=== PATIENT | female | born 1960 | race Caucasian/White ===

== ENCOUNTER 2023-11-18 00:07 | Day surgery (SDC) | payer OTHER, SELFPAY ==
[2023-11-03 08:35] VITALS: BMI 19.3
--- NOTE | 2023-11-16 09:06 | SUR.PREOP ---
Patient called regarding upcoming procedure. Message pt's voicemail regarding appointment times.
[2023-11-18 10:41] VITALS: BP 111/65; PULSE 68; RESP 16; TEMP 36.1; O2SAT 100; BMI 16.0
[2023-11-18] MEDS: LACTATED RINGERS 1,000 ML 150 ML IV CONT (10:50)
--- NOTE | 2023-11-18 10:56 | P.HP_ITS ---
History of Present Illness History of Present Illness Consent: Risks, benefits, and alternatives have been discussed and questions answered. Patient agrees to proceed with procedure. Chief complaint: fam hx colon ca Narrative: Christina Jack is a 63 year old female Presents for screening colonoscopy. Patient's current weight appetite and bowel movements are normal. She denies abdominal pain. Patient has had no bleeding. Family history is significant taylor t her mother had colon cancer. Patient presents today for surveillance colonoscopy. Review of Systems Review of Systems: Review of systems noncontributory. [facility] Family History Family History (System 04/16/22 @ 14:14 by Madison English) Mother Carcinoma of colon Family history of malignant neoplasm of kidney Sibling Family history of malignant neoplasm of breast in first degree relative Father Family history of malignant neoplasm of esophagus Social History Social History (System 04/16/22 @ 14:14 by Madison English) Smoking status: Never smoker Alcohol intake: current Drinks per week: 20 Substance use type: does not use Living arrangements: with family Spiritual care concerns: No Meds Home Medications and Allergies Home Medications Medication Instructions Recorded Confirmed Type No Home Medications 11/03/23 11/18/23 History Allergies Allergy/AdvReac Type Severity Reaction Status Date / Time No Known Allergies Allergy Unknown Verified 11/18/23 10:41 Vital Signs Vital Signs - 24 hr 11/18/23 10:41 Temperature 96.9 F L Pulse Rate 68 Respiratory Rate 16 Blood Pressure 111/65 Pulse Oximetry 100 Oxygen Delivery Room Air Exam Narrative: Physical exam reveals patient to be alert. Vital signs stable. HEENT exam is unremarkable. Patient is anicteric. Lungs are clear to auscultation and percussion. Heart is without murmur or extra sounds. Abdomen bowel sounds are present soft nontender with no organomegaly. Digital external rectal exam normal. Assessment and Plan Assessment and plan (1) Family history of colon cancer in mother: Code(s): Z80.0 - Family history of malignant neoplasm of digestive organs Status: Acute Assessment and Plan: Patient's mother had colon cancer. Plan for surveillance colonoscopy at 5 year intervals per
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
[2023-11-18 12:21] VITALS: BP 84/52; PULSE 67; RESP 24; O2SAT 100
[2023-11-18 12:31] VITALS: BP 92/57; PULSE 64; RESP 17; O2SAT 100
[2023-11-18 12:41] VITALS: BP 102/67; PULSE 64; RESP 14; O2SAT 100
== END 2023-11-18 12:58 | disposition home or self-care (01) ==
PROVIDERS: PCP Internal Medicine; Visit Provider Internal Medicine Gastroenterology
PROC: 0DJD8ZZ Inspection of Lower Intestinal Tract, Via Natural or Artificial Opening Endoscopic (ICD-10-PCS; CPT 45378; principal; 2023-11-18 11:30)
DX: Z12.11 Encounter for screening for malignant neoplasm of colon (principal); D12.5 Benign neoplasm of sigmoid colon; K64.8 Other hemorrhoids; K57.30 Diverticulosis of large intestine without perforation or abscess without bleeding; Z80.0 Family history of malignant neoplasm of digestive organs; Z80.51 Family history of malignant neoplasm of kidney; Z80.3 Family history of malignant neoplasm of breast
CPT/HCPCS: 45385; 88305; J2371; J2704; J7120

== ENCOUNTER 2024-11-25 10:36 | Outpatient (CLI) | payer MEDICARE, SELFPAY ==
--- NOTE | ~2024-11-25 | MM_ITS ---
EXAMINATION: MM screening mammo implant BI HISTORY: Screening TECHNIQUE: Craniocaudal and mediolateral oblique 3-D tomosynthesis images were obtained and synthetic 2-D images were generated. CAD analysis was submitted and interpreted. No implant displaced views we re possible given the scar tissue from current implants. COMPARISON: No prior mammogram is available for comparison at this institution. BREAST PARENCHYMAL COMPOSITION: The breasts are heterogeneously dense, which may obscure small masses . FINDINGS: Indeterminate parenchymal pattern without suspicious microcalcifications, discrete masses or signific ant asymmetry. IMPRESSION: 1. No mammographic evidence of malignancy. Recommend bilateral breast US for surveillance BI-RADS Category 0: Incomplete: Needs additional imaging evaluation. Reviewed, dictated and finalized at location A. EDURE ANALYST
== END 2024-11-25 10:37 | disposition home or self-care (01) ==
LOC: ANHIMG 10:42
PROVIDERS: PCP Internal Medicine; Visit Provider Internal Medicine
DX: Z12.31 Encounter for screening mammogram for malignant neoplasm of breast (principal)
CPT/HCPCS: 77063; 77067

== ENCOUNTER 2025-01-12 09:15 | Outpatient (CLI) | payer MEDICARE, SELFPAY ==
--- NOTE | ~2025-01-12 | US_ITS ---
US breast BI complete 01/12/2025 10:12 Indication: Very little breast tissue with breast implants. Ultrasound examination recommended. Procedure: High-resolution bilateral complete breast ultrasound Comparison: Screening mammogram dated 11/25/2024 Findings: Right breast: At 10:00, 8 cm from the nipple there is an oval 3 mm hypoechoic mass without significan t posterior features or internal vascularity. At 11:00, 8 cm from the nipple there is a 6 mm cyst. Left breast: There is a cluster of cysts at 1:00, 8 cm from the nipple, best seen on serial sonograph ic sequences. Impression: 1: Probable benign bilateral breast masses. BI-RADS CATEGORY 3-PROBABLY BENIGN FINDING RECOMMENDATION: Six-month follow-up limited bilateral breast ultrasound recommended. Reviewed, dictated and finalized at location [employer]NOVATION OFFICER Impression: 1: Probable benign bilateral breast masses. BI-RADS CATEGORY 3-PROBABLY BENIGN FINDING RECOMMENDATION: Six-month follow-up limited bilateral breast ultrasound recomme nded.
--- OUTSIDE RECORDS SUMMARY | 2025-01-12 09:25 | XMS_ITS | Encounter Summary ---
Author Organization [facility] System Address [address] [place] [address] Care Team Providers Care Machine Fur Cleaner Name Role Phone Beth Pereyra MD Primary Care Provider Paul Ariza MD Unavailable [phone] Chucho Joshi MD Unavailable [phone] Encounter Details Date Type Department Care Team (Late Contact Info) Description 07/17/2024 MyChart Message Enc [address] [address] [address] [place] [address] [place] [address] [place] [address] Vaccine Social History Tobacco Use Types Packs/Day Years Used Date Smoking Tobacco: Never Smokeless Tobacco: Never Comments:Counseled by DR Susannah conteh. Alcohol Use Standard Drinks/Week Comments Yes 28.3 (1 standard dri nk = 0.6 oz pure alcohol) Wine OR beer,not both same evening,Happy hour/dinner/evening PHQ-2 Answer Date Recorded Patient Health Questionnaire-2 Score 1 06/28/2023 Comments No Sex and Gender Information Value Date Recorded Sex Assigned at Not on file Legal Sex Female 3:55 PM CDT Gender Identity Not on file Sexual Orientation Not on file documented as of this encounter Plan of Treatment Upcoming Encounters Date Type Department Care Team (Late Contact Info) Description 09/05/2025 2:00 PM CDT Office Visit [facility]pecialty Care - [place] [address] [address] [place] [address] Beth Pereyra MD [facility] [address] 09/05/2025 3:00 PM CDT Office Visit [facility] Mult[facility]pecialty Care - [place] [address] [address] [place] [address] Beth Pereyra MD [address] [address] documented as of this encounter Visit Diagnoses Not on filedocumented in this encounter Care Teams Machine Fur Cleaner Relationship Specialty Start Date End Date Beth Pereyra MD [address] [place] [address] PCP - General INTERNAL MEDICINE 05/04/23 Paul Ariza MD 1 [place] [address] ORTHOPAEDIC SURGERY 08/23/24 08/23/24 Chucho Joshi MD 1225 [place] [address] ORTHOPAEDIC SURGERY 08/23/24 documented as of this encounter
--- OUTSIDE RECORDS SUMMARY | 2025-01-12 09:25 | XMS_ITS | Encounter Summary ---
Author Organization [facility] Address [address] [place] [address] Care Team Providers Care Food And Beverage Assistant Manager Name Role Phone Beth Pereyra MD Primary Care Provider [phone] Paul Ariza MD Unavailable [phone] Chucho Joshi MD Unavailable [phone] Encounter Details Date Type Department Care Team (Late Contact Info) Description 07/04/2023 [facility] [address] [address] Beth Pereyra MD [address] [place] [address] Thank you Social History Tobacco Use Types Packs/Day Years Used Date Smoking Tobacco: Never Smokeless Tobacco: Never Comments:Counseled by DR Susannah conteh. Alcohol Use Standard Drinks/Week Comments Yes 33.3 (1 standard drink = 0.6 oz pure alcohol) Happy hour, dinner, evening PHQ-2 Answer Date Recorded Patient Health Questionnaire-2 [...] Description 09/05/2025 2:00 PM CDT Office Visit [facility] Multispecialty [address] [place] [address] Beth Pereyra MD [address] [address] 09/05/2025 3:00 PM CDT Office Visit [facility] Multispecialty Care - [place] [address] [address] [place] [address] Beth Pereyra MD [facility] [address] [address] documented as of this encounter Visit Diagnoses Not on filedocumented in this encounter Care Teams Food And Beverage Assistant Manager Relationship Specialty Start Date End Date Beth Pereyra MD [address] [place] [address] PCP - General INTERNAL MEDICINE 05/04/23 Paul Ariza MD 1 [place] [address] ORTHOPAEDIC SURGERY 08/23/24 08/23/24 Chucho Joshi MD 1225 [place] [address] ORTHOPAEDIC SURGERY 08/23/24 documented as of this encounter
--- OUTSIDE RECORDS SUMMARY | 2025-01-12 09:25 | XMS_ITS | Encounter Summary ---
Author Organization [facility] System Address [facility] [place] [address] Care Team Providers Care Ceramic Plater Name Role Phone Beth Pereyra MD Primary Care Provider [phone] Paul Ariza MD Unavailable [phone] Chucho Joshi MD Unavailable [phone] Encounter Details Date Type Department Care Team (Late Contact Info) Description 01/10/2024 [facility] [address] Beth Pereyra MD [address] [place] [address] Records Social History Tobacco Use Types Packs/Day Years [...] Description 09/05/2025 2:00 PM CDT Office Visit [facility] Multispecialty [address] [place] [address] Beth Pereyra MD [address] [address] 09/05/2025 3:00 PM CDT Office Visit [facility] Medical Group Multispecialty Care - [place] [address] [address] [address] [place] [address] Beth Pereyra MD [address] [address] documented as of this encounter Visit Diagnoses Not on filedocumented in this encounter Care Teams Ceramic Plater Relationship Specialty Start Date End Date Beth Pereyra MD [address] [place] [address] PCP - General INTERNAL MEDICINE 05/04/23 Paul Ariza MD 1 [place] [address] ORTHOPAEDIC SURGERY 08/23/24 08/23/24 Chucho Joshi MD 1225 [place] [address] ORTHOPAEDIC SURGERY 08/23/24 documented as of this encounter
--- OUTSIDE RECORDS SUMMARY | 2025-01-12 09:25 | XMS_ITS | Encounter Summary ---
Author Organization [facility] Address [address] [place] [address] Care Team Providers Care Electric Meter Repairer Apprentice Name Role Phone Beth Pereyra MD Primary Care Provider [phone] Paul Ariza MD Unavailable [phone] Chucho Joshi MD Unavailable [phone] Encounter Details Date Type Department Care Team (Latest Contact Info) Description 09/01/2023 [facility] [address] [address] Beth Pereyra MD [address] [place] [address] Breast Cancer Screening Social History Tobacco Use Types Packs/Day Years [...] Upcoming Encounters Date Type Department Care Team ( st Contact Info) Description 09/05/2025 2:00 PM CDT Office Visit [facility] Multispecialty [address] [place] [address] Beth Pereyra MD [address] [address] 09/05/2025 3:00 PM CDT Office Visit [facility] Medical Group Multispecialty Care - [place] [address] [address] [place] [address] Beth Pereyra MD [facility] [address] [address] documented as of this encounter Visit Diagnoses Not on filedocumented in this encounter Care Teams Electric Meter Repairer Apprentice Relationship Specialty Start Date End Date Beth Pereyra MD [address] [place] [address] PCP - General INTERNAL MEDICINE 05/04/23 Paul Ariza MD 1 [place] [address] ORTHOPAEDIC SURGERY 08/23/24 08/23/24 Chucho Joshi MD 1225 [place] [address] ORTHOPAEDIC SURGERY 08/23/24 documented as of this encounter
--- OUTSIDE RECORDS SUMMARY | 2025-01-12 09:25 | XMS_ITS | Clinical Summary ---
Author Organization [facility] Address [address] [place] [address] Care Team Providers Care Credit Risk Modeler Name Role Phone Beth Pereyra MD Primary Care Provider [phone] Chucho Joshi MD Unavailable [phone] Allergies No known active allergies Medications No known medications Active Problems Problem Noted Date Diagnosed Date Breast implant rupture 06/28/2023 Arthritis 06/28/2023 KINZA (generalized anxiety disorder) 06/28/2023 Encounters Date Type Department Care Team Description [facility]/10[facility] [place] [address] [facility] [address] [place], [place] [id number] Beth Pereyra MD Referral 01/02/2025 [facility] [place] [address] [place], [place] [address] Beth Pereyra MD Follow Up Call 11/25/2024 Scan HEALTH INFO SRVCS Scanned, [facility] Mammogram (SCAN) 11/08/2024 Scan HEALTH INFO SRVCS Scanned, [facility] from Last 3 Months Immunizations Name Administration Dates Next Due Abrysvo Respiratory Syncytia l Virus (RSV) 0.5 mL, PF 08/13/2023 Arexvy Respiratory Syncytial Virus (RSV, adjuvanted) 0.5 mL, PF 08/13/2023 FLUAD (IIV, Trivalent, 0.5 M L Pre-filled Syringe) 08/12/2024 Influenza (Generic) 10/11/2017,12/06/2012 Influenza Adult (Generic) 08/13/2023,08/2022,10/25/2021,2019,09/18/2018 PFIZER COVID-19 (12+) MRNA, LNP-S, PF, RAJANI-SUCROSE, 30 MCG/0.3 ML (COMIRNATY) 08/12/2024,08/19/2023 PFIZER COVID-19 (DAVIS CAP), MRNA, LNP-S, PF, 30 MCG/0.3 ML RAJANI-SUCROSE, IM 08/19/2023,03/23/2022 PFIZER COVID-19 (ORIGINAL FORMULATION, PURPLE CAP) mRNA, LNP-S, PF, 30 MCG/0.3 ML DOSE 10/25/2021,03/04/2021,02/11/2021 Pneumococcal (Prevnar 20) 07/17/2024 Shingrix 05/04/2023,02/23/2023 Tdap (Generic) 01/18/2023 Zoster (Zostavax) [address] Unt/0.65Ml 10/11/2017 Family History Medical History Relation Comments Miscarriages / Stillbirths Daughter 4 mis carriages Arthritis Father Cancer Father esophageal, bone Hypertension Father Stroke Maternal Aunt Stroke Maternal Grandmother Arthritis Mother Cancer Mother colon, kidney Miscarriages / Stillbirths Mother 2 mis carriages Cancer Paternal Aunt colon Cancer Paternal Grandfather prostrate Arthritis Paternal Grandmother Stroke Paternal Grandmother Arthritis Sister 1 psoriatic arthri tis Cancer Sister 1 breast Miscarriages / Stillbirths Sister 2 1 mis carriage Relation Status Comments Daughter Father Maternal Aunt Maternal Grandmother Mother Paternal Aunt Paternal Grandfather Paternal Grandmother Sister 1 Sister 2 Social History Tobacco Use Types Packs/Day Years Used Date Smoking Tobacco: Never Passive Smoke Exposure: Past Smokeless Tobacco: Never Tobacco Cessation:Counseling Given: Yes Comments:Counseled by DR Pereyra. Alcohol Use Standard Drinks/Week Comments Yes 11.7 (1 standard dri nk = 0.6 oz pure alcohol) Wine OR beer,not both same evening,Happy hour/dinner/evening AUDIT-C Answer Date Recorded Q1: How often do you have a drink containing alcohol? 4 or more times a week 08/22/2024 Q2: How many drinks containi ng alcohol do you have on a typical day when you are drinking? 1 or 2 Q3: How often do you have si x or more drinks on one occasion? Never 08/22/2024 PHQ-2 Answer Date Recorded Patient Health Questionnaire-2 Score 0 08/22/2024 Comments No Sex and Gender Information Value Date Recorded Sex Assigned at Not on file Legal Sex Female 3:55 PM CDT Gender Identity Not on file Sexual Orientation Not on file Last Filed Vital Signs Vital Sign Reading Time Taken Comments Blood Pressure 114/67 08/23/2024 2:12 PM CDT Pulse 65 08/23/2024 2:12 PM CDT Temperature 36.6 C (97.9 F) 08/23/2024 2:12 PM CDT Respiratory Rate 14 08/23/2024 2:12 PM CDT Oxygen Saturation 99% 08/23/2024 2:12 PM CDT Inhaled Oxygen Concentration - - Weight 48.7 kg (107 lb 6.4 oz) 08/23/2024 2:12 P M CDT Height 157.5 cm (5' 2 ) 08/23/2024 2:12 PM CDT Body Mass Index 19.64 08/23/2024 2:12 PM CDT Plan of Treatment Upcoming Encounters Date Type Department Care Team (Late st Contact Info) Description 09/05/2025 2:00 PM CDT Office Visit [facility] Medical [facility] Multispecialty [facility] - [address] [address] Beth Pereyra MD [address] [place] [address] 09/05/2025 3:00 PM CDT Office Visit [facility] Medical [facility] Multispecialty [facility] - [place] [address] [place] [address] Beth Pereyra MD [address] [place] [address] Health Maintenance Due Date Last Done Comments Dexa Scan (General) 2024 PHQ-2 (Physician Hearne) 11/29/2024 08/22/2024 Mammogram Screening 11/25/2026 11/25/2024, 11/25/2024, 11/25/2024, Additional history exists DTaP, Tdap and Td Vaccines (2 - Td or Tdap) 01/18/2033 01/18/2023 Colorectal Cancer Screening Colonoscopy (10 Years) 11/18/2033 11/18/2023 Zoster Vaccines Completed 05/04/2023, 01/28, 10/11/2017 Hepatitis C Completed 06/28/2023 RSV Immunization or 60+ Years Completed 08/13/2023, 08/13/2023 Pneumococcal Vaccine: 65+ Years Completed 07/17/2024 Pneumococcal Vaccine: Pediatrics (0 to 5 Years) and At-Risk Patients (6 to 64 Years) Aged Out 07/17/2024 No longer eligible based on patient's age to complete this topic COVID-19 Vaccine Completed 08/12/2024, , 08/19/2023, Additional history exists Influenza Adult Completed 08/12/2024, 07/30, 09/07/2022, Additional history exists Meningococcal B Vaccine Aged Out No l onger eligible based on patient's age to complete this topic Meningococcal Vaccine Aged Out No lesley evonne eligible based on patient's age to complete this topic RSV Immunizations Under 20 Months Aged Out No longer eligible based on patient's age to complete this topic Procedures Procedure Name Priority Date/Time Associated Diagnosis Comments MAMMOGRAM GENERIC (SCAN ORDER) 11/25/2024 MAMMOGRAM GENERIC (SCAN ORDER) 11/25/2024 MAMMOGRAM GENERIC (SCAN ORDER) 11/25/2024 MAMMOGRAM GENERIC (SCAN ORDER) 11/25/2024 MAMMOGRAM GENERIC (SCAN ORDER) 11/25/2024 COLONOSCOPY GENERIC (SCAN ORDER) 11/18/2023 HEPATITIS C ANTIBODY Routine 06/28/2023 3:24 PM CDT Annual physical exam Establishing care with new doctor, encounter for Routine general medical examination at a health care facility Encounter for hepatitis C screening test for low risk patient from Last 3 Months or Most Recently Relevant to Health Maintenance Results * MAMMOGRAM GENERIC (SCAN ORDER) (11/25/2024) Only the most recent of5 resultswithin the time period is included. Anatomical Region Laterality Modality Other 11/25/2024 us [facility] Scanned SCANNING Final Resu lt * COLONOSCOPY GENERIC (11/18/2023) 11/18/2023 us [facility] Scanned SCANNING Final Resu lt * HEPATITIS C ANTIBODY (06/28/2023 3:24 PM CDT) HEPATITIS C AB NON-REACTI VE NON-REACT STEFAN 06/28/2023 9:44 PM CDT [facility] Comment: ANTIBODIES TO HCV NOT DETECTED. DOES NOT EXCLUDE THE POSSIBILITY OF EXPOSURE TO HCV. 06/28/2023 3:24 PM CDT Beth Pereyra MD LABORATORY Final Result Performing Organization Address City/State/[facility] Co de Phone Number [facility] [address] [place] [address], [id number] from Last 3 Months or Most Recently Relevant to Health Maintenance Insurance MEDICARE Care Teams Credit Risk Modeler Relationship Specialty Start Date End Date Beth Pereyra MD [facility] [address] [place] [address] PCP - General INTERNAL MEDICINE 05/04/23 Chucho Joshi MD [address]25 [place] [address] ORTHOPAEDIC SURGERY 08/23/24
--- OUTSIDE RECORDS SUMMARY | 2025-01-12 09:25 | XMS_ITS | Encounter Summary ---
Author Organization [facility] Address [address] [place] [address] Care Team Providers Care Assessment Analyst Name Role Phone Beth Pereyra MD Primary Care Provider [phone] Paul Ariza MD Unavailable [phone] Chucho Joshi MD Unavailable [phone] Encounter Details Date Type Department Care Team (Late Contact Info) Description 10/19/2023 [facility] [address] Beth Pereyra MD [address] [place] [address] Colonoscopy Social History Tobacco Use Types Packs/Day Years [...] Description 09/05/2025 2:00 PM CDT Office Visit [facility] Multispecialty [address] [place] [address] Beth Pereyra MD [address] [address] 09/05/2025 3:00 PM CDT Office Visit [facility] Medical Group Multispecialty Care - [place] [address] [place] [address] [address] [address] [place] [address] Beth Pereyra MD [address] [address] documented as of this encounter Visit Diagnoses Not on filedocumented in this encounter Care Teams Assessment Analyst Relationship Specialty Start Date End Date Beth Pereyra MD [address] [place] [address] PCP - General INTERNAL MEDICINE 05/04/23 Paul Ariza MD 1 [place] [address] ORTHOPAEDIC SURGERY 08/23/24 08/23/24 Chucho Joshi MD 1225 [place] [address] ORTHOPAEDIC SURGERY 08/23/24 documented as of this encounter
--- OUTSIDE RECORDS SUMMARY | 2025-01-12 09:25 | XMS_ITS | Encounter Summary ---
Author Organization [facility] Address [address] [place] [address] Care Team Providers Care Apparel Rental Clerk Name Role Phone Beth Pereyra MD Primary Care Provider [phone] Paul Ariza MD Unavailable [phone] Chucho Joshi MD Unavailable [phone] Encounter Details Date Type Department Care Team (Latest Contact Info) Description 08/23/2024 PointBursthart Message Enc [facility] Medical Group Multispecialty Care - [place] [address] [address] [place] [address] [place] [address] [place] [address] 157 [place] [address] Last eCheck questionnaire Social History Tobacco Use Types Packs/Day Years Used Date Smoking Tobacco: Never Passive Smoke Exposure: Past Smokeless Tobacco: Never Comments:Counseled by DR Susannah conteh. Alcohol Use Standard Drinks/Week Comments Yes 11.7 [...] Description 09/05/2025 2:00 PM CDT Office Visit [facility] Medical [facility] Multispecialty Care - [address] [address] Beth Pereyra MD [address] [place] [address] 09/05/2025 3:00 PM CDT [facility] [address] [address] Beth Pereyra MD [address] [place] [address] documented as of this encounter Visit Diagnoses Not on filedocumented in this encounter Additional Health Concerns Assessment Noted Time PHQ-9 Depression Total Score: 1 08/18/20 10:42 AM CDT documented as of this encounter Care Teams Apparel Rental Clerk Relationship Specialty Start Date End Date Beth Pereyra MD [address] [place] [address] PCP - General INTERNAL MEDICINE 05/04/23 Paul Ariza MD 1 [place] [address] ORTHOPAEDIC SURGERY 08/23/24 08/23/24 Chucho Joshi MD [address] [place] [address] ORTHOPAEDIC SURGERY 08/23/24 documented as of this encounter
--- OUTSIDE RECORDS SUMMARY | 2025-01-12 09:25 | XMS_ITS | Encounter Summary ---
Author Organization [facility] Address [address] [place] [address] Care Team Providers Care Steel Fitter Name Role Phone Beth Pereyra MD Primary Care Provider [phone] Paul Ariza MD Unavailable [phone] Chucho Joshi MD Unavailable [phone] Encounter Details Date Type Department Care Team (Late Contact Info) Description 08/20/2023 [facility] [address] Beth Pereyra MD [address] [place] [address] Vaccine updates Social History Tobacco Use Types Packs/Day Years [...] Description 09/05/2025 2:00 PM CDT Office Visit [facility] [address] [place] [address] Beth Pereyra MD [address] [address] 09/05/2025 3:00 PM CDT Office Visit [facility] Mult[facility]ialty Care - [address] [address] [address] [place] [address] Beth Pereyra MD [facility] [address] documented as of this encounter Visit Diagnoses Not on filedocumented in this encounter Care Teams Steel Fitter Relationship Specialty Start Date End Date Beth Pereyra MD [address] [place] [address] PCP - General INTERNAL MEDICINE 05/04/23 Paul Ariza MD 1 [place] [address] ORTHOPAEDIC SURGERY 08/23/24 08/23/24 Chucho Joshi MD [address] [place] [address] ORTHOPAEDIC SURGERY 08/23/24 documented as of this encounter
--- OUTSIDE RECORDS SUMMARY | 2025-01-12 09:25 | XMS_ITS | Encounter Summary ---
Author Organization [facility] Address [address] [place] [address] Care Team Providers Care Mandarin Teacher Name Role Phone Beth Pereyra MD Primary Care Provider [phone] Paul Ariza MD Unavailable [phone] Chucho Joshi MD Unavailable Encounter Details Date Type Department Care Team (Late st Contact Info) Description 08/20/2024 MyChart Message Enc [facility] Multispecialty Care - [address] [place] [address] Beth Pereyra MD [address] [place] [address] Questionnaires Social History Tobacco Use Types Packs/Day Years [...] on file documented as of this encounter Progress Notes * Joselyn Rivas - 08/24/2024 10:24 AM CDT Sent patient a message; patient is scheduled with Dr. Pereyra and Tessy on the same day; resulting in forms being sent twice. documented in this encounter Plan of Treatment Upcoming Encounters Date Type Department Care Team (Late st Contact Info) Description 09/05/2025 2:00 PM CDT Office Visit [facility] Medical [facility] Multispecialty [facility] - [address] [address] Beth Pereyra MD [address] [place] [address] 09/05/2025 3:00 PM CDT [facility] [address] [address] Beth Pereyra MD [address] [place] [address] documented as of this encounter Visit Diagnoses Not on filedocumented in this encounter Additional Health Concerns Assessment Noted Time PHQ-9 Depression Total Score: 1 08/18/20 24 10:42 AM CDT documented as of this encounter Care Teams Mandarin Teacher Relationship Specialty Start Date End Date Beth Pereyra MD [address] [place] [address] PCP - General INTERNAL MEDICINE 05/04/23 Paul Ariza MD 1 [place] [address] ORTHOPAEDIC SURGERY 08/23/24 08/23/24 Chucho Joshi MD [address] [place] [address] ORTHOPAEDIC SURGERY 08/23/24 documented as of this encounter
--- OUTSIDE RECORDS SUMMARY | 2025-01-12 09:25 | XMS_ITS | Encounter Summary ---
Author Organization [facility] Address [address] [place] [address] Care Team Providers Care Deputy Chief Sheriff Name Role Phone Beth Pereyra MD Primary Care Provider [phone] Paul Ariza MD Unavailable [phone] Chucho Joshi MD Unavailable [phone] Encounter Details Date Type Department Care Team (Late Contact Info) Description 12/05/2023 [facility] [address] Beth Pereyra MD [address] [place] [address] Happy New Year! Social History Tobacco Use Types Packs/Day Years [...] Description 09/05/2025 2:00 PM CDT Office Visit [facility] Multispecialty [address] [place] [address] Beth Pereyra MD [address] [address] 09/05/2025 3:00 PM CDT Office Visit [facility] Multispecialty Care - [address] [address] [address] [place] [address] Beth Pereyra MD [facility] [address] [address] documented as of this encounter Visit Diagnoses Not on filedocumented in this encounter Care Teams Deputy Chief Sheriff Relationship Specialty Start Date End Date Beth Pereyra MD [address] [place] [address] PCP - General INTERNAL MEDICINE 05/04/23 Paul Ariza MD 1 [place] [address] ORTHOPAEDIC SURGERY 08/23/24 08/23/24 Chucho Joshi MD [address] [place] [address] ORTHOPAEDIC SURGERY 08/23/24 documented as of this encounter
--- OUTSIDE RECORDS SUMMARY | 2025-01-12 09:25 | XMS_ITS | Encounter Summary ---
Author Organization [facility] Address [address] [place] [address] Care Team Providers Care Refrigerator Assembler Name Role Phone Beth Pereyra MD Primary Care Provider [phone] Paul Ariza MD Unavailable [phone] Chucho Joshi MD Unavailable [phone] Encounter Details Date Type Department Care Team (Latest Contact Info) Description 09/25/2023 [facility] [address] Beth Pereyra MD [address] [place] [address] Breast Cancer Screening Social History Tobacco [...] Description 09/05/2025 2:00 PM CDT Office Visit [facility] Mult[facility]pecialty [address] [place] [address] Beth Pereyra MD [address] [address] 09/05/2025 3:00 PM CDT Office Visit [facility] Multispecialty Care - [place] [address] [address] [place] [address] Beth Pereyra MD [facility] [address] [address] documented as of this encounter Visit Diagnoses Not on filedocumented in this encounter Care Teams Refrigerator Assembler Relationship Specialty Start Date End Date Beth Pereyra MD [address] [place] [address] PCP - General INTERNAL MEDICINE 05/04/23 Paul Arzia MD 1 [place] [address] ORTHOPAEDIC SURGERY 08/23/24 08/23/24 Chucho Joshi MD [address] [place] [address] ORTHOPAEDIC SURGERY 08/23/24 documented as of this encounter
--- OUTSIDE RECORDS SUMMARY | 2025-01-12 09:26 | XMS_ITS | Patient Health Summary ---
Author Organization [facility] Address [address] [place] [address] Care Team Providers Care Dry House Operator Name Role Phone Beth Pereyra MD Primary Care Provider [phone] Note from [facility],non-owned Affiliates and Associated Physician Practices is amultiple site organization consisting of ambulatory clinics and hospital sitesin [place], [place], [place] and [place]. This disclosure is being madepursuant to the Care Everywhere program and may not contain all information available regarding this patient. Last updated 18.[facility] Allergies No known active allergies Medications * Be aware that medications may not be up to date on this document. Alwaysverify current medications with the patient. * pregabalin (Lyrica) 50 MG capsule(Started 10/13/2024) Take 1 (one) capsule by mouth 2 times daily for 30 days Reasons: Neuropathic Pain * famotidine (Pepcid) 20 MG tablet(Started 10/13/2024) Take 1 (one) tablet by mouth every 12 hours for 30 days Reasons: Gastroesophageal Reflux Disease * celecoxib (CeleBREX) 100 MG capsule(Started 10/13/2024) Take 1 (one) capsule by mouth 2 times daily Reasons: Musculoskeletal Pain * aspirin EC (Ecotrin) 81 MG tablet(Started 10/13/2024) Take 1 (one) tablet by mouth every 12 hours Reasons: Venous Thromboembolism Active Problems Problem Noted Date Diagnosed Date Osteoarthritis, unspecified osteoarthritis type, unspecified site 10/12/2024 Acquired leg length discrepancy 09/02/2023 Immunizations * COVID PFIZER BIVALENT 12Y+ 30mcg/0.3ML(Given 09/07/2022) * Covid Pfizer primary Monovalent 12+ yr 0.3ml(Given 08/19/2023) Social History Tobacco Use Types Packs/Day Years Used Date Smoking Tobacco: Never Passive Smoke Exposure: Past Smokeless Tobacco: Never Tobacco Cessation:Counseling Given: Not Answered Alcohol Use Standard Drinks/Week Comments Yes 2 (1 standard drink = 0.6 oz pur e alcohol) with dinner PHQ-2 Answer Date Recorded Patient Health Questionnaire-2 Score 0 11/01/2024 Sex and Gender Information Value Date Recorded Sex Assigned at Not on file Gender Identity Not on file Sexual Orientation Not on file Last Filed Vital Signs Vital Sign Reading Time Taken Comments Blood Pressure 120/64 10/13/2024 7:39 AM TEXTILE SCIENCE TECHNICIAN Pulse 69 10/13/2024 7:39 AM TEXTILE SCIENCE TECHNICIAN Temperature 36.9 C (98.5 F) 10/13/2024 7:39 AM TEXTILE SCIENCE TECHNICIAN Respiratory Rate 16 10/13/2024 7:39 AM TEXTILE SCIENCE TECHNICIAN Oxygen Saturation 99% 10/13/2024 7:39 AM TEXTILE SCIENCE TECHNICIAN Inhaled Oxygen Concentration - - Weight 48.5 kg (107 lb) 11/08/2024 9:39 AM TEXTILE SCIENCE TECHNICIAN Height 157.5 cm (5' 2 ) 11/08/2024 9:39 AM TEXTILE SCIENCE TECHNICIAN Body Mass Index 19.57 11/08/2024 9:39 AM TEXTILE SCIENCE TECHNICIAN Medical Devices Implanted Type Area Senior Contracts Manager Device Identifier Shelf Expiration Date Model / Serial / Lot Tibial Baseplate Implanted:Qty: 1 on 10/12/2024 by Chucho Joshi MD at [facility] Left: Knee [employer] 03/21/2032 [id number] / / [id number] Articular Insert Implanted:Qty: 1 on 10/12/2024 by Chucho Joshi MD at [facility] Left: Knee [employer] 10/28/2031 [id number] / / [id number] Legion Por Cr Walton Fem L Sz 4 Implanted:Qty: 1 on 10/12/2024 by Chucho Joshi MD at [facility] Left: Knee [employer] 01/04/2032 [id number] / / [id number] Procedures * XR KNEE LEFT 4VW OR MORE(Performed 11/08/2024) Performed for Status post total left knee replacement * IMAGING/RADIOLOGY/XRAY RESULTS ORDER(Performed 10/17/2024) * CARDIAC RHYTHM STRIP ORDER(Performed 10/17/2024) * APHERESIS/TRANSFUSION ORDER(Performed 10/17/2024) * HGB HCT PANEL(Performed 10/13/2024) Performed for Osteoarthritis, unspecified osteoarthritis type, unspecified site * OT EVAL AND TREAT(Performed 10/12/2024) * ENDOTRACHEAL TUBE NOTE(Performed 10/12/2024) * PERIPHERAL BLOCK(Performed 10/12/2024) * BLOOD TYPE VERIFICATION(Performed 10/12/2024) * DC TOTAL KNEE REPLACEMENT(Performed 10/12/2024) Performed for Primary osteoarthritis of left knee * NICOTINE + METABOLITES URINE(Performed 10/02/2024) Performed for Nicotine dependence in remission, unspecified nicotine product type * NICOTINE + METABOLITES BLOOD(Performed 10/02/2024) Performed for Nicotine dependence in remission, unspecified nicotine product type * TRANSFERRIN(Performed 09/21/2024) Performed for Preprocedural examination * URINALYSIS REFLEX MICROSCOPIC REFLEX CULTURE(Performed 09/21/2024) Performed for Preprocedural examination * COMPREHENSIVE METABOLIC PANEL(Performed 09/21/2024) Performed for Preprocedural examination * CULTURE MSSA/MRSA(Performed 09/21/2024) Performed for Preprocedural examination * TYPE + SCREEN PANEL(Performed 09/21/2024) Performed for Preprocedural examination * FRUCTOSAMINE(Performed 09/21/2024) Performed for Preprocedural examination * HEMOGLOBIN A1C(Performed 09/21/2024) Performed for Preprocedural examination * CBC W AUTO DIFFERENTIAL(Performed 09/21/2024) Performed for Preprocedural examination * XR KNEE LEFT 4VW OR MORE(Performed 06/20/2024) Performed for Varus deformity of tibia, Acquired leg length discrepancy * XR KNEE BILAT STANDING 1VW(Performed 05/17/2024) Performed for Varus deformity of tibia * MAMMO BILAT IMPLANT SCREEN W BRAYDON(Performed 09/07/2023) Performed for Encounter for screening mammogram for malignant neoplasm of breast * CT 3D RECON W INDEPENDENT WKSN(Performed 09/01/2023) Performed for Varus deformity of tibia * CT TIBIA FIBULA LEFT WO CONT(Performed 09/01/2023) Performed for Varus deformity of tibia * XR TIBIA FIBULA LEFT 2VW(Performed 08/11/2023) Performed for Varus deformity of tibia * XR BONE LENGTH SCANOGRAM(Performed 08/11/2023) Performed for Varus deformity of tibia Results * XR Knee Left 4Vw or More (11/08/2024 9:41 AM TEXTILE SCIENCE TECHNICIAN) Only the most recent of2 resultswithin the time period is included. Anatomical Region Laterality Modality Lower Extremity Radiographic Shu ging 11/08/2024 9:59 AM TEXTILE SCIENCE TECHNICIAN Narrative 11/08/2024 10:00 AM TEXTILE SCIENCE TECHNICIAN PROCEDURE: XR KNEE LEFT 4VW OR MORE DATE/TIME OF EXAM: 11/08/2024 9:41 AM CLINICAL INFORMATION: None relevant/not provided if blank. Indication: Z96.652: Presence of left artificial knee joint XR KNEE LEFT 4VW OR MORE, AP, LATERAL VIEWS. HISTORY: Z96.652: Presence of left artificial knee joint COMPARISON: 06/20/2024 FINDINGS/IMPRESSION: 1. No acute fracture, dislocation, suspicious intrinsic bony lesions, or suspicious soft tissue abnormalities are identified. 2. The patient underwent tibiofemoral arthroplasty in the interval since the previous examination which appears uncomplicated. Alignment is anatomic. 3. There is no suprapatellar joint effusion, patella erlinda or patellar enthesopathy on lateral view. > Interpreting Provider: Guero Pichardo MD on 11/08/2024 10:00 AM Procedure Note Guero Pichardo MD - 11/08/2024 PROCEDURE: XR KNEE LEFT 4VW OR MORE DATE/TIME OF EXAM: 11/08/2024 9:41 AM CLINICAL INFORMATION: None relevant/not provided if blank. Indication: Z96.652: Presence of left artificial knee joint XR KNEE LEFT 4VW OR MORE, AP, LATERAL VIEWS. HISTORY: Z96.652: Presence of left artificial knee joint COMPARISON: 06/20/2024 FINDINGS/IMPRESSION: 1. No acute fracture, dislocation, suspicious intrinsic bony lesions, or suspicious soft tissue abnormalities are identified. 2. The patient underwent tibiofemoral arthroplasty in the interval since the previous examination which appears uncomplicated. Alignment is anatomic. 3. There is no suprapatellar joint effusion, patella erlinda or patellar enthesopathy on lateral view. > Interpreting Provider: Guero Pichardo MD on 11/08/2024 10:00 AM Chucho Joshi MD DIAGNOSTIC IMAGING ORDERABLES * IMAGING RADIOLOGY XRAY RESULTS ORDER (10/17/2024 2:05 AM TEXTILE SCIENCE TECHNICIAN) Anatomical Region Laterality Modality Other Narrative 10/17/2024 2:05 AM TEXTILE SCIENCE TECHNICIAN Ordered by an unspecified provider. Scanned Document IMAGING * CARDIAC RHYTHM STRIP ORDER (10/17/2024 2:04 AM TEXTILE SCIENCE TECHNICIAN) Narrative 10/17/2024 2:04 AM TEXTILE SCIENCE TECHNICIAN Ordered by an unspecified provider. Scanned Document CARDIAC SERVICES ORD ERABLES * APHERESIS/TRANSFUSION ORDER (10/17/2024 2:04 AM TEXTILE SCIENCE TECHNICIAN) Narrative 10/17/2024 2:04 AM TEXTILE SCIENCE TECHNICIAN Ordered by an unspecified provider. Scanned Document NURSING - VITAL SIGN S AND ASSESSMENT * (ABNORMAL) HGB HCT PANEL (10/13/2024 2:33 AM TEXTILE SCIENCE TECHNICIAN) [facility] Signature Hemoglobin 10.6(L) 11.9 - 15.8 g/dL 10/13/2024 3:01 AM TEXTILE SCIENCE TECHNICIAN [facility] Hematocrit 31.6(L) 34.8 - 46.1 % 10/13/2024 3:01 AM TEXTILE SCIENCE TECHNICIAN [facility] Blood BLOOD SPECIMEN / Unknown Lab Venipuncture / Unknown 10/13/2024 2:33 AM TEXTILE SCIENCE TECHNICIAN 10/13/2024 2:56 AM TEXTILE SCIENCE TECHNICIAN Chucho Joshi MD LAB - HEMATOLOGY OR DERABLES [facility] [address] [place] [address] * ETT LINE PERFORMABLE (10/12/2024 11:29 AM TEXTILE SCIENCE TECHNICIAN) Narrative Anupama Alejandre APRN-MARINE OIL TERMINAL SUPERINTENDENT - 10/12/2024 11:29 AM TEXTILE SCIENCE TECHNICIAN Anupama Alejandre APRN-CRNA 10/12/2024 11:29 AM Endotracheal Tube Placement: Patient Location: OR. Intubation Event Date/Time: 10/12/2024 11:11 AM Procedure: intubation ([id number]) Procedure Section: Sedation: under general anesthesia. Indications for Airway Management: anesthesia Induction: standard IV Patient Position: supine Mask Ventilation: easy. Blade Type: Seamus Blade Size: 3 Laryngoscopy View: grade 2 (partial cords) Intubation Adjuncts: stylet Tube: endotracheal tube Placement: oral Tube type: cuff - inflated Tube Size (MM): 7 Depth of Insertion (CM): 19 Measured From: teeth Cuff Inflated With: air Number of Attempts: 1. Placement Verified By: bilateral breath sounds, chest auscultation and CO2 monitor Tube secured with: adhesive tape. Dentition unchanged? Yes Difficult Airway? No. Procedure Start Time: 10/12/2024 11:11 AM. Staff Section Anesthesia Provider: Anupama Alejandre APRN-CRNA, Performed the procedure Provider #1: Redd Garvin MD. Redd Garvin MD GENERAL ANESTHESIA ORDERABLES * Peripheral Nerve Block (10/12/2024 10:51 AM TEXTILE SCIENCE TECHNICIAN) Narrative Redd Garvin MD - 10/12/2024 10:51 AM TEXTILE SCIENCE TECHNICIAN Redd Garvin MD 10/12/2024 10:53 AM Peripheral Nerve Block Procedure: Peripheral Nerve Block Patient Location: Pre-op Preprocedure Section: Indications: at surgeon's request and postop pain management. Pre-anesthetic Checklist: Patient identified, IV Checked, Site examined and clear, Risks and benefits discussed, Surgical consent verified, Monitors and equipment, Time-out performed, Informed consent obtained, Pre-op evaluation done, Questions answered/anesthesia questions answered, Allergies reviewed and Removal hand/wrist jewelry Monitors: BP, Pulse Ox and EKG. Patient Condition: sedated, meaningful contact maintained throughout procedure Patient Position: supine Patient Sedated? Yes Sedation Type: mild Sedation Agents: midazolam (VERSED) injection - Intravenous 2 mg - 10/12/2024 10:48:00 AM Procedure Section Laterality: left Block Performed: Adductor Canal Prep: Chloraprep Strerile Field: gloves, mask and hat/cap Skin localized with: lidocaine (XYLOCAINE) 1 % injection - Infiltration 1 mL - 10/12/2024 10:48:00 AM Needle Type: Echogenic insultaed Needle Gauge: 21 Needle Length: 80 mm Needle Depth: 5 cm Catheter? No Ultrasound Guided? Yes Technique: in plane Visualization: Preliminary scan performed, Important anatomical structures identified, Target identified, Needle tip visualized throughout the procedure, No intraneural or intravascular puncture occurred, Hydrodissection utilized, Local visualized surrounding nerve on ultrasound and Ultrasound image in chart Injection was made incrementally with constant monitoring and aspirations every 5 mL's Block Agents or Additives used? Yes Block agents used: bupivacaine 0.5% - EPINEPHrine 1:200,000 (PF) injection - Infiltration 20 mL - 10/12/2024 10:51:00 AM Procedure Tolerance: tolerated well Assessment: completed Procedure Start Time: 10/12/2024 10:48 AM. Procedure End Time: 10/12/2024 10:51 AM. Procedure Total Time: 3 minutes. Staff Section Anesthesia Provider: Redd Garvin MD, Performed the procedure Redd Garvin MD GENERAL ANESTHESIA ORDERABLES * BLOOD TYPE VERIFICATION (10/12/2024 9:47 AM TEXTILE SCIENCE TECHNICIAN) ABO Rh A POS 10/12/2024 10:14 AM TEXTILE SCIENCE TECHNICIAN [facility] Blood Bank BLOOD SPECIMEN / Unknown Venipuncture / Unknown 10/12/2024 9:47 AM TEXTILE SCIENCE TECHNICIAN 10/12/2024 9:54 AM TEXTILE SCIENCE TECHNICIAN Timothy Garcia MD LAB - BLOOD BANK ORD ERABLES [facility] [address] [place] [address] * NICOTINE + METABOLITES URINE (10/02/2024 2:00 PM TEXTILE SCIENCE TECHNICIAN) Nicotine Urine <10.0 ng/mL [facility] INSURANCE BILL Comment: Nicotine levels greater than 100.0 are consistent with the use of tobacco or tobacco cessation products. Cotinine Urine <10.0 ng/mL [facility] INSURANCE BILL Comment: Cotinine levels greater than 200.0 are consistent with the use of tobacco or tobacco cessation products. Urine URINE / Unknown 10/02/2024 2 :00 PM TEXTILE SCIENCE TECHNICIAN 10/02/2024 Narrative [facility] INSURANCE BILL - 10/06/2024 7:12 AM TEXTILE SCIENCE TECHNICIAN Test(s) 440829-Exsccquh; [id number]-Msbricjp was developed and its performance characteristics determined by [employer]. It has not been cleared or approved by the Food and Drug Administration. Performed at: - [address] [id number] Process Designer: Ministerio Nair MD, Phone: [phone] Chucho Joshi MD LAB - URINE SERGEANT OF OFFICERS RY ORDERABLES Performing Organization Address [facility] Co de Phone Number [facility] [address] [place] [address] * NICOTINE + METABOLITES BLOOD (10/02/2024 2:00 PM TEXTILE SCIENCE TECHNICIAN) Nicotine <1.0 ng/mL [facility] INSURANCE BILL Comment: This test was developed and its performance characteristics determined by [employer]. It has not been cleared or approved by the Food and Drug Administration. Nicotine levels greater than 2.0 are consistent with the use of tobacco or tobacco cessation products. Cotinine <1.0 ng/mL [facility] INSURANCE BILL Comment: This test was developed and its performance characteristics determined by [employer]. It has not been cleared or approved by the Food and Drug Administration. Cotinine levels greater than 20.0 are consistent with the use of tobacco or tobacco cessation products. Blood BLOOD SPECIMEN / Unknown 10/02/2024 2:00 PM TEXTILE SCIENCE TECHNICIAN 10/02/2024 Narrative [facility] INSURANCE BILL - 10/11/2024 10:13 AM TEXTILE SCIENCE TECHNICIAN Performed at: - [address] [id number] Process Designer: Ministerio Nair MD, Phone: [phone] Chucho Joshi MD LAB - CHEMISTRY ORD ERABLES [facility] [address] [place] [address] * CULTURE MSSA/MRSA (09/21/2024 1:53 PM CDT) Culture Negative for Staphylococcus aureus (MRSA/MSSA) 09/23/2024 9:43 AM CDT [facility]CRO[facility] Microbiology SPECIMEN FROM NASAL FOSSAE / Unknown Collection / Unknown 09/21/2024 1:53 PM CDT 09/21/2024 2:04 PM CDT Chucho Joshi MD LAB - MICROBIOLOGY ORDERABLES [facility] [address] [place] [address], [facility] [phone] * (ABNORMAL) URINALYSIS REFLEX MICROSCOPIC REFLEX CULTURE (09/21/2024 1:53 PM CDT) Color UA Yellow Straw, Yellow 09/21/2024 2:10 PM CDT [facility] Clarity UA Cloudy(A) Clear 09/21/2024 2:10 PM CDT [facility] Glucose UA Negative Negative 09/21/2024 2:10 PM CDT [facility] Bilirubin UA Negative Negative 09/21/2024 2:10 PM CDT [facility] Ketone UA Negative Negative 09/21/2024 2:10 PM CDT [facility] Specific [place] UA 1.010 1.005 - 1.030 09/21/2024 2:10 PM CDT [facility] Blood UA Negative Negative 09/21/2024 2:10 PM CDT [facility] pH UA 8.0 5.0 - 8.0 pH 09/21/2024 2:10 PM CDT [facility] Protein UA Negative Negative 09/21/2024 2:10 PM CDT [facility] Urobilinogen UA Negative Negative mg/dL 09/21/2024 2:10 PM CDT [facility] Nitrite UA Negative Negative 09/21/2024 2:10 PM CDT [facility] Leukocyte UA Negative Negative 09/21/2024 2:10 PM CDT [facility] Urine Microscopy Urine microscopy not indicated 09/21/2024 2:10 PM CDT [facility] Reflex Status Culture not indicated 09/21/2024 2:10 PM CDT [facility] Urine URINE SPECIMEN OBTAINED BY CLEAN CATCH PROCEDURE / Unknown Collection / Unknown 09/21/2024 1:53 PM CDT 09/21/2024 2:03 PM CDT Narrative [facility] - 09/21/2024 2:10 PM CDT Ascorbic Acid can cause false negative urine strip tests for blood, glucose, nitrite, and bilirubin. Chucho Joshi MD LAB - URINALYSIS OR DERABLES Performing Organization Address [facility] Co de Phone Number [facility] [address] [place] [id number] * TRANSFERRIN (09/21/2024 1:53 PM CDT) Pathologist [facility] Transferrin 250 174 - 382 mg/dL 09/21/2024 2:23 PM CDT [facility] Blood BLOOD SPECIMEN / Unknown Venipuncture / Unknown 09/21/2024 1:53 PM CDT 09/21/2024 2:03 PM CDT Chucho Joshi MD LAB - CHEMISTRY ORD ERABLES Performing Organization Address [facility] Co de Phone Number [facility] [address] [place] [phone] * (ABNORMAL) COMPREHENSIVE METABOLIC PANEL (09/21/2024 1:53 PM CDT) [facility] Glucose 104(H) 70 - 99 mg/dL 09/21/2024 2:23 PM CDT [facility] Sodium 140 136 - 145 mmol/L 09/21/2024 2:23 PM CDT [facility] Potassium 3.9 3.5 - 5.1 mmol/L 09/21/2024 2:23 PM CDT [facility] Chloride 104 98 - 107 mmol/L 09/21/2024 2:23 PM CDT [facility] CO2 26 22 - 29 mmol/L 09/21/2024 2:23 PM CDT [facility] Calcium 10.1 8.4 - 10.4 mg/dL 09/21/2024 2:23 PM CDT [facility] Anion Gap 10 6 - 16 mmol/L 09/21/2024 2:23 PM CDT [facility] BUN 16 7 - 26 mg/dL 09/21/2024 2:23 PM CDT [facility] Creatinine 0.76 0.57 - 1.11 mg/dL 09/21/2024 2:23 PM CDT [facility] Alkaline Phosphatase 55 40 - 150 U/L 09/21/2024 2:23 PM CDT [facility] ALT 23 0 - 55 U/L 09/21/2024 2:23 PM CDT [facility] AST 22 5 - 34 U/L 09/21/2024 2:23 PM CDT [facility] Protein Total 7.5 6.4 - 8.3 gm/dL 09/21/2024 2:23 PM CDT [facility] Albumin 4.4 3.4 - 5.0 gm/dL 09/21/2024 2:23 PM CDT [facility] Bilirubin Total 0.4 0.2 - 1.2 mg/dL 09/21/2024 2:23 PM CDT [facility] eGFR by CKD-EPI 87(L) >=90 mL/min/1.7 3 m2 09/21/2024 2:23 PM CDT [facility] Blood BLOOD SPECIMEN / Unknown Venipuncture / Unknown 09/21/2024 1:53 PM CDT 09/21/2024 2:03 PM CDT Chucho Joshi MD LAB - CHEMISTRY ORD ERABLES [facility] [address] [place] [address] * HEMOGLOBIN A1C (09/21/2024 1:52 PM CDT) Pathologist [facility] Hemoglobin A1c 5.2 <5.7 % 09/21/2024 2:58 PM CDT [facility] Estimated Average Glucose 103 mg/dL 09/21/2024 2:58 PM CDT [facility] Blood BLOOD SPECIMEN / Unknown Venipuncture / Unknown 09/21/2024 1:52 PM CDT 09/21/2024 2:03 PM CDT Narrative [facility] - 09/21/2024 2:58 PM CDT HbA1c Interpretation: Normal: < 5.7% Pre-diabetes: 5.7-6.4% Diabetes: Equal to or greater than 6.5% Test results diagnostic of diabetes should be repeated for confirmation. Treatment target values recommended by ADA and other clinical organizations should be used to evaluate metabolic control in patients. This test should not replace glucose testing for patients with Type 1 diabetes, pediatric patients, or women. Falsely low HbA1c results may be observed in patients with clinical conditions that shorten erythrocyte life span or decrease mean erythrocyte age such as the presence of unstable hemoglobin variants, elevated hemoglobin F level or other causes of hemolytic anemia. HbA1c may not accurately reflect glycemic control when clinical conditions that affect erythrocyte survival are present. Severe Iron deficiency anemia may yield falsely high results. Hemoglobin A1c assay should not be used to diagnose or monitor diabetes in patients with malignancy, recent blood transfusion, chronic kidney or liver disease. This method may yield falsely low results when hemoglobin (HbF) exceeds 5% in the specimen. The Sood Alinity assay for the measurement of HbA1c is a National Glycohemoglobin Standardization Program (NGSP) certified method. Chucho Joshi MD LAB - CHEMISTRY ORD FootbalisticBLES Performing Organization Address [facility] Co de Phone Number [facility] [address] [place] [address] * FRUCTOSAMINE (09/21/2024 1:52 PM CDT) [facility] Fructosamine 268 205 - 285 umol/L 09/24/2024 12:02 AM CDT [facility] ([facility]) Comment: INTERPRETIVE INFORMATION: Fructosamine Variations in levels of serum proteins (albumin and immunoglobulins) may affect fructosamine results. Performed By: [facility] [address] [place] [address] Electronics Hardware Design Engineer: Henry Barrow MD, PhD CLIA Number: [id number] Blood BLOOD SPECIMEN / Unknown Venipuncture / Unknown 09/21/2024 1:52 PM CDT 09/21/2024 2:03 PM CDT Chucho Joshi MD LAB - CHEMISTRY ORD ERABLES Performing Organization Address [facility]/ZIP Co de Phone Number [facility]) [address] [place] [address] * TYPE + SCREEN PANEL (09/21/2024 1:52 PM CDT) [facility] ABO Rh A POS 09/21/2024 3:05 PM CDT [facility] Comment:No history; collect retype. Antibody Screen NEG 3:05 PM CDT [facility] Blood Bank BLOOD SPECIMEN / Unknown Venipuncture / Unknown 09/21/2024 1:52 PM CDT 09/21/2024 2:03 PM CDT Chucho Joshi MD LAB - BLOOD BANK OR DERABLES [facility] [address] [phone] * CBC W AUTO DIFFERENTIAL (09/21/2024 1:52 PM CDT) Pathologist [facility] WBC 5.3 4.0 - 10.7 x10E9/L 09/21/2024 2:36 PM CDT [facility] RBC Count 4.48 3.90 - 5.20 x10E12/L 09/21/2024 2:36 PM CDT [facility] Hemoglobin 13.3 11.9 - 15.8 g/dL 09/21/2024 2:36 PM CDT [facility] Hematocrit 40.4 34.8 - 46.1 % 09/21/2024 2:36 PM CDT [facility] MCV 90.2 80.0 - 98.0 fL 09/21/2024 2:36 PM CDT [facility] MCH 29.7 26.7 - 33.6 pg 09/21/2024 2:36 PM CDT [facility] [facility] MCHC 32.9 31.7 - 36.3 g/dL 09/21/2024 2:36 PM CDT [facility] RDW-CV 12.5 11.3 - 14.8 % 09/21/2024 2:36 PM CDT [facility] Platelet Count 270 150 - 420 x10E9/L 09/21/2024 2:36 PM CDT [facility] MPV 9.3 7.8 - 11.4 fL 09/21/2024 2:36 PM CDT [facility] Neutrophil % 45.5 41.0 - 74.0 % 09/21/2024 2:36 PM CDT [facility] Lymphocyte % 45.7 17.0 - 47.0 % 09/21/2024 2:36 PM CDT [facility] Monocyte % 7.6 3.0 - 11.0 % 09/21/2024 2:36 PM CDT [facility] Eosinophil % 0.4 0.0 - 7.0 % 09/21/2024 2:36 PM CDT [facility] Basophil % 0.4 0.0 - 1.6 % 09/21/2024 2:36 PM CDT [facility] Immature Granulocytes % 0.4 0.0 - 1.0 % 09/21/2024 2:36 PM CDT [facility] Neutrophil Absolute 2.39 1.60 - 7.50 x10E9/L 09/21/2024 2:36 PM CDT [facility] Lymphocyte Absolute 2.40 1.00 - 4.40 x10E9/L 09/21/2024 2:36 PM CDT [facility] Monocyte Absolute 0.40 0.15 - 1.00 x10E9/L 09/21/2024 2:36 PM CDT [facility] Eosinophil Absolute 0.02 0.00 - 0.60 x10E9/L 09/21/2024 2:36 PM CDT [facility] Basophil Absolute 0.02 0.00 - 0.13 x10E9/L 09/21/2024 2:36 PM CDT [facility] Blood BLOOD SPECIMEN / Unknown Venipuncture / Unknown 09/21/2024 1:52 PM CDT 09/21/2024 2:03 PM CDT Chucho Joshi MD LAB - HEMATOLOGY OR DERABLES [facility] [address], [place] [id number] * XR KNEE BILAT STANDING 1VW (05/17/2024 9:50 AM CDT) Anatomical Region Laterality Modality Lower Extremity Radiographic Shu ging 05/17/2024 11:1 8 AM CDT Impressions 05/17/2024 11:21 AM CDT IMPRESSION: Left knee osteoarthritis and genu varum. > Interpreting Provider: Christian Ferrara MD on 05/17/2024 11:21 AM Narrative 05/17/2024 11:21 AM CDT PROCEDURE: XR KNEE BILAT STANDING 1VW DATE/TIME OF EXAM: 05/17/2024 9:50 AM CLINICAL INFORMATION: None relevant/not provided if blank. 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 FINDINGS: On the right, the knee carrying angle is normal, 5 degrees valgus. The medial and lateral compartment joint spaces are normal. On the left, there is genu varum with carrying angle measuring 6 degrees varus. There is osteoarthritis with moderate medial compartment joint space narrowing. There is chronic deformity of the femoral shaft with cortical thickening and a spur of heterotopic ossification medially , grossly unchanged although incompletely imaged. Procedure Note Christian Ferrara MD - 05/17/2024 PROCEDURE: XR KNEE BILAT STANDING 1VW DATE/TIME OF EXAM: 05/17/2024 9:50 AM CLINICAL INFORMATION: None relevant/not provided if blank. 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 FINDINGS: On the right, the knee carrying angle is normal, 5 degrees valgus. The medial and lateral compartment joint spaces are normal. On the left, there is genu varum with carrying angle measuring 6 degrees varus. There is osteoarthritis with moderate medial compartment jointspace narrowing. There is chronic deformity of the femoral shaft with cortical thickening and a spur of heterotopic ossification medially , grossly unchanged although incompletely imaged. IMPRESSION: Left knee osteoarthritis and genu varum. > Interpreting Provider: Christian Ferrara MD on 05/17/2024 11:21 AM Mani Pelaez MD DIAGNOSTIC IMAGING O [facility] * MAMMO BILAT IMPLANT SCREEN W BRAYDON (09/07/2023 3:45 PM CDT) Anatomical Region Laterality Modality Breast Bilateral Mammography 09/20/2023 1:53 PM CDT Impressions 09/20/2023 2:08 PM CDT : 1. No mammographic evidence of malignancy in either breast. 2. Mammographic findings consistent with bilateral subglandular silicone implant rupture. 3. Dense breast parenchyma. RECOMMENDATION: 1. Screening mammography in one year, pending no interval breast concerns. 2. Given her extremely dense breast parenchyma and breast prostheses, consider annual complete breast ultrasound for supplemental screening. This can be alternated at 6 month intervals with mammography or performed near the time of screening. If there are any questions, please call [phone]. OVERALL ASSESSMENT: BI-RADS CATEGORY 2: BENIGN. > Interpreting Provider: Roseline Ayala DO on 09/20/2023 2:08 PM Narrative 09/20/2023 2:08 PM CDT EXAMINATION: DIGITAL MAMMO BILAT IMPLANT SCREEN W BRAYDON AND WITH CAD LOCATION: [facility] EXAM DATE: 09/07/2023 HISTORY: New baseline screening mammogram. History of breast augmentation (originally placed in 1981) with known bilateral silicone implant rupture. Family history of breast cancer in patient's sister (diagnosed at the age of 50). RISK ASSESSMENT CALCULATION: Patient completed a breast cancer risk assessment during her appointment. Based upon the information she provided and her mammographic breast density, her lifetime risk of developing breast cancer is 10 % (Average Risk <15%; Intermediate / Moderate Risk 15-19%; High Risk > 20%).Risk assessment based upon the Tyrer-Cuzick v8 model. Given her extremely dense breast parenchyma, supplemental screening ultrasound is suggested for further evaluation and can be performed at 6 month intervals with screening mammography or the time of screening mammography. For further information, please call [phone]. COMPARISON: No prior mammograms are available for comparison. Previous mammograms have been performed in 2008 and before. Prior images have been purged and are not available for retrieval. Therefore, the patient's current bilateral mammogram is interpreted as her new baseline exam. TECHNIQUE: Bilateral synthetic 2-D digital mammogram images and bilateral digital breast tomosynthesis (3D) were obtained and reviewed in the craniocaudal and mediolateral oblique projections with the breast implants displaced. Bilateral craniocaudal and mediolateral oblique conventional full field digital images were also obtained to include the bilateral breast implants. . A total of 8 images obtained. Computer-aided detection (CAD) was utilized. BREAST PARENCHYMAL COMPOSITION: Category D: The breasts are extremely dense which lowers the sensitivity of mammography. FINDINGS: There are bilateral subglandular silicone breast implants, which limit evaluation of the breast parenchyma. Extravasation of silicone is noted along the upper outer aspect of the patient's right breast implant, consistent with known rupture. Extravasation of silicone is also noted along the superior and medial aspect of the patient's left breast implant, also consistent with known rupture. Bilateral capsular calcifications are unchanged. No discrete mass, suspicious calcifications or architectural distortion. No suspicious mammographic findings to suggest malignancy in either breast. Xenia Carcamo MD MAMMO ORDERABLES * CT 3D RECON W INDEPENDENT WKSN (09/01/2023 10:06 AM CDT) Anatomical Region Laterality Modality Computed Tomogra phy 09/01/2023 11:3 0 AM CDT Impressions 09/01/2023 1:01 PM CDT IMPRESSION: Three-dimensional rendering for operative planning. Report dictated by Gerardo Cook MD, MD (advanced manufacturing vice president). I, Christian Ferrara MD have personally reviewed and interpreted this examination/study. 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 TECHNIQUE: Three-dimensional shaded surface rendering of the left tibia and fibula was performed by a technologist on a separate three-dimensional workstation at the request of the referring physician and submitted for review. FINDINGS: The three-dimensional images confirm the findings of a chronic left distal tibial shaft fracture with mild angulation. Please see the report from the original study for further details. Procedure Note Christian Ferrara MD - 09/01/2023 PROCEDURE: CT 3D RECON W INDEPENDENT WKSN, DATE/TIME OF EXAM:09/01/2023 10:06 AM, [facility] INDICATION: M92.509: Varus deformity of tibia ADDITIONAL CLINICAL INFORMATION: Ordering Provider Reason For Exam: left tibial varus deformity, pre op evaluation Technologist Note: Additional: COMPARISON: None. TECHNIQUE: Three-dimensional shaded surface rendering of the left tibiaand fibula was performed by a technologist on a separate three-dimensional workstation at the request of the referring physician and submitted for review. FINDINGS: The three-dimensional images confirm the findings of a chronic leftdistal tibial shaft fracture with mild angulation. Please see the report fromthe original study for further details. IMPRESSION: Three-dimensional rendering for operative planning. Report dictated by Gerardo Cook MD, MD (advanced manufacturing vice president). Christian Branham MD have personally reviewed and interpreted this examination/study. > Interpreting Provider: Christian Ferrara MD on 09/01/2023 1:01 PM Xenia Steele PA-C CT ORDERABLES * CT TIBIA FIBULA LEFT WO CONT (09/01/2023 9:44 AM CDT) Anatomical Region Laterality Modality Lower Extremity Computed Tomogra phy 09/01/2023 11:3 2 AM CDT Impressions 09/01/2023 12:15 PM CDT IMPRESSION: Chronic healed fracture of the distal tibial shaft with mild angulation. Report dictated by Gerardo Cook MD, MD (advanced manufacturing vice president). Christian Branham MD have personally reviewed and interpreted this examination/study. > Interpreting Provider: Christian Ferrara MD on 09/01/2023 12:15 PM Narrative 09/01/2023 12:15 PM CDT PROCEDURE: CT TIBIA FIBULA LEFT WO CONT DATE/TIME OF EXAM: 09/01/2023 9:44 AM CLINICAL INFORMATION: None relevant/not provided if blank. Indication: M92.509: Varus deformity of tibia Additional History: COMPARISON: Left tibia and fibula x-ray 08/11/2023. TECHNIQUE: CT of the [left tibia and fibula] was performed utilizing standard protocol. CT dose reduction technique was used, including Automated Exposure Control. FINDINGS: There is a chronic healed fracture of the distal tibial shaft with varus angulation measuring 7 degrees. Bone spurs are seen between the distal tibia and fibula near the fracture site. No acute fracture is visualized. There is at least moderate knee osteoarthritis. The soft tissues are normal. Procedure Note Christian Ferrara MD - 09/01/2023 PROCEDURE: CT TIBIA FIBULA LEFT WO CONT DATE/TIME OF EXAM: 09/01/2023 9:44 AM CLINICAL INFORMATION: None relevant/not provided if blank. Indication: M92.509: Varus deformity of tibia Additional History: COMPARISON: Left tibia and fibula x-ray 08/11/2023. TECHNIQUE: CT of the [left tibia and fibula] was performed utilizing standard protocol. CT dose reduction technique was used, including Automated ExposureControl. FINDINGS: There is a chronic healed fracture of the distal tibial shaft with varus angulation measuring 7 degrees. Bone spurs are seen between the distal tibia and fibula near the fracture site. No acute fracture isvisualized. There is at least moderate knee osteoarthritis. The soft tissues are normal. IMPRESSION: Chronic healed fracture of the distal tibial shaft with mild angulation. Report dictated by Gerardo Cook MD, MD (advanced manufacturing vice president). Christian Branham MD have personally reviewed and interpreted this examination/study. > Interpreting Provider: Christian Ferrara MD on 09/01/2023 12:15 PM Xenia Steele PA-C CT ORDERABLES * XR TIBIA FIBULA LEFT 2VW (08/11/2023 3:16 PM CDT) Anatomical Region Laterality Modality Lower Extremity Radiographic Shu ging 08/11/2023 3:16 PM CDT Impressions 08/11/2023 3:36 PM CDT IMPRESSION: Chronic fractures of the tibia and fibula. Report dictated by Lexa Greer MD (advanced manufacturing vice president). Christian Branham MD have personally reviewed and interpreted this examination/study. 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 varus deformity evaluation Technologist Note: Additional: COMPARISON: None. FINDINGS: There are chronic healed distal tibial and fibular fractures with mild residual deformity including angulation. There is no acute fracture. Procedure Note Christian Ferrara MD - 08/11/2023 PROCEDURE: XR TIBIA FIBULA LEFT 2VW, DATE/TIME OF EXAM: 08/11/2023 3:16 PM, LOCATION [facility] INDICATION: M92.509: Varus deformity of tibia ADDITIONAL CLINICAL INFORMATION: Ordering Provider Reason For Exam: AP and lateral. varus deformity evaluation Technologist Note: Additional: COMPARISON: None. FINDINGS: There are chronic healed distal tibial and fibular fractures with mild residual deformity including angulation. There is no acute fracture. IMPRESSION: Chronic fractures of the tibia and fibula. Report dictated by Lexa Greer MD (advanced manufacturing vice president). I, Christian Ferrara MD have personally reviewed and interpreted this examination/study. > Interpreting Provider: Christian Ferrara MD on 08/11/2023 3:36 PM Xenia Steele PA-C DIAGNOSTIC IMAGING ORDERABLES * XR BONE LENGTH SCANOGRAM (08/11/2023 1:46 PM CDT) Anatomical Region Laterality Modality Lower Extremity, Pelvis Radiogra [facility] 08/11/2023 1:48 PM CDT Impressions 08/11/2023 1:52 PM CDT IMPRESSION: Lower extremity length measurements reported above. > Interpreting Provider: Christian Ferrara MD on 08/11/2023 1:52 PM Narrative 08/11/2023 1:52 PM CDT PROCEDURE: XR BONE LENGTH SCANOGRAM DATE/TIME OF EXAM: 08/11/2023 1:46 PM CLINICAL INFORMATION: None relevant/not provided if blank. 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 TECHNIQUE: FINDINGS: Uncalibrated measurements are as follows: The right femur measures 46.7 cm from the top of the head to the medial condyle. The right tibia measures 36.1 cm from the medial plateau to the plafond. The right lower extremity overall measures 80.7 cm from the top of the femoral head to the tibial plafond. The left femur measures 46.4 cm. The left tibia measures 34.0 cm. The left lower extremity overall measures 83.3 cm. There is pelvic tilt with the right ischial tuberosity higher than the left. Right femoral head avascular necrosis, left femoral shaft chronic fracture, left distal tibial shaft chronic fracture, left knee osteoarthritis. Procedure Note Christian Ferrara MD - 08/11/2023 PROCEDURE: XR BONE LENGTH SCANOGRAM DATE/TIME OF EXAM: 08/11/2023 1:46 PM CLINICAL INFORMATION: None relevant/not provided if blank. 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 TECHNIQUE: FINDINGS: Uncalibrated measurements are as follows: The right femur measures 46.7 cm from the top of the head to the medial condyle. The right tibia measures 36.1 cm from the medial plateau to the plafond. The right lower extremity overall measures 80.7 cm from the top of the femoral head to the tibial plafond. The left femur measures 46.4 cm. The left tibia measures 34.0 cm. The left lower extremity overall measures 83.3 cm. There is pelvic tilt with the right ischial tuberosity higher than the left. Right femoral head avascular necrosis, left femoral shaft chronicfracture, left distal tibial shaft chronic fracture, left knee osteoarthritis. IMPRESSION: Lower extremity length measurements reported above. > Interpreting Provider: Christian Ferrara MD on 08/11/2023 1:52 PM Mani Pelaez MD DIAGNOSTIC IMAGING O [facility] Care Teams Dry House Operator Relationship Specialty Start Date End Date Beth Peryera MD [address] [facility] [address] [place] [id number] PCP - General Internal Medicine 07/07/23
--- OUTSIDE RECORDS SUMMARY | 2025-01-12 09:26 | XMS_ITS | Encounter Summary ---
Author Organization [facility] Address [address] [place] [address] Care Team Providers Care Fitness And Wellness Coordinator Name Role Phone Beth Pereyra MD Primary Care Provider [phone] Paul Ariza MD Unavailable [phone] Chucho Joshi MD Unavailable [phone] Encounter Details Date Type Department Care Team (Latest Contact Info) Description 06/27/2024 [facility] [address] [address] Beth Pereyra MD [address] [place] [address] Wellness Welcome to Medicare Social History Tobacco Use Types Packs/Day Years [...] Encounters Date Type Department Care Team ( Contact Info) Description 09/05/2025 2:00 PM CDT Office Visit [facility] Medical [facility] [address] [place] [address] Beth Pereyra MD [address] [address] 09/05/2025 3:00 PM CDT Office Visit [facility] Medical [facility] Multispecialty Care - [address] [address] [address] [place] [address] Beth Pereyra MD [facility] [address] [address] documented as of this encounter Visit Diagnoses Not on filedocumented in this encounter Care Teams Fitness And Wellness Coordinator Relationship Specialty Start Date End Date Beth Pereyra MD [address] [place] [address] PCP - General INTERNAL MEDICINE 05/04/23 Paul Ariza MD [address] [place] [address] ORTHOPAEDIC SURGERY 08/23/24 08/23/24 Chucho Joshi MD [address] [place] [address] ORTHOPAEDIC SURGERY 08/23/24 documented as of this encounter
--- OUTSIDE RECORDS SUMMARY | 2025-01-12 09:26 | XMS_ITS | Encounter Summary ---
Author Organization [facility] Address [address] [place] [address] Care Team Providers Care Records Management Coordinator Name Role Phone Beth Pereyra MD Primary Care Provider [phone] Paul Ariza MD Unavailable [phone] Chucho Joshi MD Unavailable [phone] Encounter Details Date Type Department Care Team (Late Contact Info) Description 07/17/2023 [facility] [address] Beth Pereyra MD [address] [place] [address] [address] Pelaez Social History Tobacco Use Types Packs/Day Years [...] Description 09/05/2025 2:00 PM CDT Office Visit [facility] [address] [place] [address] Beth Pereyra MD [address] [address] 09/05/2025 3:00 PM CDT Office Visit [facility] Medical Group Multispecialty Care - [place] [address] [address] [place] [address] Beth Pereyra MD [facility] [address] [address] documented as of this encounter Visit Diagnoses Not on filedocumented in this encounter Care Teams Records Management Coordinator Relationship Specialty Start Date End Date Beth Pereyra MD [address] [place] [address] PCP - General INTERNAL MEDICINE 05/04/23 Paul Ariza MD [address] [place] [address] ORTHOPAEDIC SURGERY 08/23/24 08/23/24 Chucho Joshi MD [address] [place] [address] ORTHOPAEDIC SURGERY 08/23/24 documented as of this encounter
--- OUTSIDE RECORDS SUMMARY | 2025-01-12 09:26 | XMS_ITS | Data Portability ---
Author Organization [facility] Address [address] [place] [address] Assessment Encounter Date Assessment Date Assessment LastModified by Organization Details LastModified Time 01/28/2016 01/28/2016 BSE reviewed and recommended . Reviewed calcium needs, exercise, and prevention of osteoporosis . Periodic colonoscopy screening recommended . Reviewed normal menopause and menopausal symptoms . Mammogram recommended yearly . [email or web address] Not available 01/28/2016 16:49:46 Plan of Treatment Reminders Order Date Submit Date Provider Last Modified By Organization Details Last Modified Time Details Appointments None recorded. Lab None recorded. Referral plastic surgeon referral 2015 016 [email or web address] 1 Not available 09:04:56 Procedures None recorded. Surgeries None recorded. Imaging MAMMO, screening, digital, bilateral 2015 016 [email or web address] 1 [facility] ([facility] Scheduling, [address] [place] [address], [address], 6 10:22:10 Medication Orders None recorded. Patient TargetsNo targets recorded. Patient InstructionsNo instructions recorded. Reason for Referral Plastic Surgeon Referral for Rupture of breast implant Referring Physician: Ever Brennan, LITHOGRAPHERS PRINTER, Encounter Date: 01/28/2016 Problems Name Problem SNOMED Code Status Onset Date Resolution Date Notes Provider Name and Address Organization Details Recorded Time Rupture of breast implant 695676703 Active Ever rodriguez [facility] 6 17:47:53 Problem Notes None recorded. Medical Equipment None Reported. Allergies No known drug allergies Medications Name Sig Start Date Stop Date Status Note LastModified by Organization Details LastModified Time Vicodin 5 mg-300 mg tablet active Not Available Not Available Not Available Vitals Date Recorded Body mass index (BMI) Body weight Body height Systolic blood pressure Diastolic blood pressure Provider Name and Address Organization Details Last Updated DateTime 01/28/2016 20 kg/m2 05959.00 5278 g 157.48 cm 130 mm[Hg] 82 mm[Hg] Susancatrachita RuizJOAN AL - [facility] 16:00:18 Social History Question Answer Notes LastModified by Organizat ion Details LastModified Time Tobacco Smoking Status Never Smoker Susan Ruiz MA null, [facility] 01/28/2016 16:00:19 What Is Your Level Of Alcohol Consumption? Moderate [email or web address] Information not available 01/28/2016 What Is Your Level Of Caffeine Consumption? Moderate [facility] of Information not available 01/28/2016 What Is Your Relationship Status? [facility] of Information not available 01/28/2016 Sex: Unknown Functional Status None recorded. Mental Status None recorded. Family History Relationship Description Onset Age of this Age Resolved Age Notes LastModified by Organization Details LastModified Time Father Hypertensive disorder [place] [address] Not available 2015 16:00:18 Notes:mother and father had cancer Medical History Condition Response Other Y Gynecological History Statement/Question Response Date of Last Pap Smear Sexual Problems? N LMP Unknown Sexually Active? Y Obstetrics History GPAL:G 4 P 0 0 1 3 Type Value Spontaneous 1 Living 3 Total 4 Past Encounters Encounter ID Performer Location Encounter Start Date Encounter Closed Date Diagnosis/Indication Diagnosis SNOMED-CT Code Diagnosis ICD10 Code Diagnosis Note [id number] [facility] ([facility]) [address] [address] 01/28/2016 15:30:17 01/29/2016 10:05:12 Gynecologic examination 15029424 Z01.419 Screening mammography 24 784786 Z12.31 Rupture of breast implant 585198484 T85.49XA Health Concerns Section Related Observation LastModified by Organization Detai ls LastModified Time None Recorded Concern Status LastModified by Organization Details LastModified Time None Recorded Advance Directives Directive None Recorded Payers Encounter Date Sequence Insurance Name Policy Number Policy Villa Covered Member ID Villa Member ID Guarantor Name 01/28/2016 1 [facility] [id number] Christina Jack [id number] Christina Jack Notes Date Note Type Note Provider Name and Address Organization Details Recorded Time 01/28/2016 text/html Annual Organ Tuner Electronic Post-MenopausalRe ported byEnid moon Symptoms:hot flashes Vaginal Bleeding:no history of post menopausal bleeding Urinary Symptoms:no hematuria; no incontinence; no nocturia; no urinary frequency Vulva:no genital lesion; no vulvar atrophy Vagina:normal vaginal discharge; no vaginal atrophy Breast:no breast lump; no nipple discharge; no breast pain Sexual Complaints:no sexual complaints Psychological Symptoms:no depression; no anxiety Preventive Measures:encourag e regular mammograms starting age 40; encourage self breast examination; encourage regular exercise; mammogram performed within the past year; needs to schedule bone density GIL Jon - [facility] 01/28/2016 17:50:06 OBGyn Episode No OBEpisode recorded.
--- OUTSIDE RECORDS SUMMARY | 2025-01-12 09:26 | XMS_ITS | Encounter Summary ---
Author Organization [facility] Address [address] [place] [address] Care Team Providers Care Director Of Financial Reporting Name Role Phone Beth Pereyra MD Primary Care Provider [phone] Paul Ariza MD Unavailable [phone] Chucho Joshi MD Unavailable [phone] Encounter Details Date Type Department Care Team (Late Contact Info) Description 07/11/2024 MyChart Message Enc [address] [place] [address] [place] [address] [place] [address] Thank You Social History Tobacco Use Types Packs/Day Years [...] Visit [facility] - [place] [address] [address] [place] [address] Beth Pereyra MD [facility] [address] 09/05/2025 3:00 PM CDT Office Visit [facility]pecialty Care - [place] [address] [address] [place] [address] Beth Pereyra MD [address] [address] documented as of this encounter Visit Diagnoses Not on filedocumented in this encounter Care Teams Director Of Financial Reporting Relationship Specialty Start Date End Date Beth Pereyra MD [address] [place] [address] PCP - General INTERNAL MEDICINE 05/04/23 Paul Ariza MD 1 [place] [address] ORTHOPAEDIC SURGERY 08/23/24 08/23/24 Chucho Joshi MD [address] [place] [address] ORTHOPAEDIC SURGERY 08/23/24 documented as of this encounter
--- OUTSIDE RECORDS SUMMARY | 2025-01-12 09:26 | XMS_ITS | Encounter Summary ---
Author Organization [facility] Address [address] [place] [address] Care Team Providers Care Commercial Appraiser Name Role Phone Beth Pereyra MD Primary Care Provider [phone] Paul Ariza MD Unavailable [phone] Chucho Joshi MD Unavailable [phone] Encounter Details Date Type Department Care Team (Latest Contact Info) Description 06/27/2023 MyChart Message Enc [facility] Multispecialty [facility] - [address] [address] Beth Pereyra MD [facility] [address] [address] Concerning my record Social History Tobacco Use Types Packs/Day Years Used Date Smoking Tobacco: Never Assessed PHQ-2 Answer Date Recorded Patient Health Questionnaire-2 Score 1 06/28/2023 Comments Unknown Sex and Gender Information Value Date Recorded Sex Assigned at Not on file Legal Sex Female 3:55 PM CDT Gender Identity Not on file Sexual Orientation Not on file documented as of this encounter Plan of Treatment Upcoming Encounters Date Type Department Care Team (Late st Contact Info) Description 09/05/2025 2:00 PM CDT Office Visit [facility] Medical [facility] Multispecialty [place] [address] [place] [address] Beth Pereyra MD [facility] [address] [address] 09/05/2025 3:00 PM CDT Office Visit [facility] Multispecialty Care - [place] [address] [address] [place] [address] Beth Pereyra MD 1188 [facility] [address] [place] [address] documented as of this encounter Visit Diagnoses Not on filedocumented in this encounter Care Teams Commercial Appraiser Relationship Specialty [place] [address] [place] [address] PCP - General INTERNAL MEDICINE 05/04/23 Paul Ariza MD 1 [place] [address] ORTHOPAEDIC SURGERY 08/23/24 08/23/24 Chucho Joshi MD [address] [place] [address] ORTHOPAEDIC SURGERY 08/23/24 documented as of this encounter
--- OUTSIDE RECORDS SUMMARY | 2025-01-12 09:26 | XMS_ITS | Referral Summary ---
Author Organization [facility] Address [address] [place] [address] Care Team Providers Care Defence Intelligence Analyst Name Role Phone Beth Pereyra MD Primary Care Provider Source Comments [facility],non-owned Affiliates and Associated Physician Practices is amultiple site organization consisting of ambulatory clinics and hospital sitesin [place], [place], [place] and [place]. This disclosure is being madepursuant to the Care Everywhere program and may not contain all information available regarding this patient. Last updated 18.[facility] Encounters Date Type Department Care Team Description 11/30/2024 Telephone [facility] - Orthopedic Surgery [address] [place] [phone] Chucho Joshi MD Follow-up 11/15/2024 Telephone [facility] - Orthopedic Surgery [address] [place] [phone] Chucho Joshi MD Question 11/08/2024 Travel 11/08/2024 9:36 AM FUNDRAISING SPECIALIST - 11/08/2024 11:59 PM FUNDRAISING SPECIALIST Hospital Encounter [facility] - Orthopedics [address] [place] [address], [address] [place] [phone] Chucho Joshi MD Discharge Disposition: Home or Self Care 11/08/2024 9:45 AM FUNDRAISING SPECIALIST Office Visit [facility] - Orthopedic Surgery [address] [place] [phone] Chucho Joshi MD Status post total left knee replacement (Primary Dx) 10/31/2024 Orders Only [facility] - Orthopedic Surgery [address] [place] [address] [phone] Chucho Joshi MD Status post total left knee replacement 10/24/2024 Telephone [facility] - Orthopedic Surgery [address] [place] [address] [phone] Chucho Joshi MD Refill Request 10/24/2024 Refill [facility] - Orthopedic Surgery [address] [place] [address] [phone] Chucho Joshi MD MEDICATION REFILL 10/18/2024 Telephone [facility] - Orthopedic Surgery [address] [place] [address] [phone] Chucho Joshi MD Case Management 10/12/2024 9:17 AM [facility] [[email or web address] - 10/13/2024 1:25 PM [facility] [[email or web address] Hospital Encounter [facility] 2 ORTHO/[place] [address] [place] [address] Chucho Joshi MD Surgery General Discharge Disposition: Home Health Care [facility] 10/12/2024 Travel 10/12/2024 10:45 AM FUNDRAISING SPECIALIST - 10/12/2024 1:15 PM [facility] [[email or web address]] Surgery [facility] [address] [place] [address] Chucho Joshi MD ARTHROPLASTY TOTAL KNEE 10/12/2024 11:02 AM [facility] [[email or web address]] Anesthesia Event [facility] [address] [place] [address] Redd Garvin MD Will, Anupama Alfonso APRN-AIRCRAFT INSTRUMENT MECHANIC from Last 3 Months Allergies No known active allergies Medications * Be aware that medications may not be up to date on this document. Alwaysverify current medications with the patient. Medication Sig Dispensed Refills Start Date End Date Status pregabalin (Lyrica) 50 MG capsuleIndications:N europathic Pain Take 1 (one) capsule by mouth 2 times daily for 30 days Reasons: Neuropathic Pain 60 capsule Active famotidine (Pepcid) 20 MG tabletIndications:Ga stroesophageal Reflux Disease Take 1 (one) tablet by mouth every 12 hours for 30 days Reasons: Gastroesophageal Reflux Disease 60 tablet 4 Active celecoxib (CeleBREX) 100 MG capsuleIndications:M usculoskeletal Pain Take 1 (one) capsule by mouth 2 times daily Reasons: Musculoskeletal Pain 60 capsule 4 Active aspirin EC (Ecotrin) 81 MG tabletIndications:Ve nous Thromboembolism Take 1 (one) tablet by mouth every 12 hours Reasons: Venous Thromboembolism 60 tablet 4 Active Active Problems Problem Noted Date Diagnosed Date Osteoarthritis, unspecified osteoarthritis type, unspecified site 10/12/2024 Acquired leg length discrepancy 09/02/2023 Immunizations Name Administration Dates Next Due COVID PFIZER BIVALENT 12Y+ 30mcg/0.3ML Covid Pfizer primary Monovalent 12+ yr 0.3ml Social History Tobacco Use Types Packs/Day Years [...] Comments Blood Pressure 120/64 10/13/2024 7:39 AM FUNDRAISING SPECIALIST Pulse 69 10/13/2024 7:39 AM FUNDRAISING SPECIALIST Temperature 36.9 C (98.5 F) 10/13/2024 7:39 AM FUNDRAISING SPECIALIST Respiratory Rate 16 10/13/2024 7:39 AM FUNDRAISING SPECIALIST Oxygen Saturation 99% 10/13/2024 7:39 AM FUNDRAISING SPECIALIST Inhaled Oxygen Concentration - - Weight 48.5 kg (107 lb) 11/08/2024 9:39 AM FUNDRAISING SPECIALIST Height 157.5 cm (5' 2 ) 11/08/2024 9:39 AM FUNDRAISING SPECIALIST Body Mass Index 19.57 11/08/2024 9:39 AM FUNDRAISING SPECIALIST Functional Status Functional Status Response Date of Assess ment Is person deaf or have serious hearing difficult y? No 10/12/2024 Is person blind or have serious difficulty seein g? No 10/12/2024 Does person have serious dif ficulty walking/climbing stairs? No 10/12/2024 Does person have difficulty dressing/bathing? No 10/12/2024 Does person have difficulty doing errands alone? No 10/12/2024 Cognitive Status Response Date of Assessm ent Does person have difficulty concentrating/remembering/making decisions? No 10/12/2024 Plan of Treatment Upcoming Encounters Date Type Department Care Team (Late st Contact Info) Description 03/14/2025 10:00 AM CDT Office Visit [facility] - Orthopedic Surgery [address] [place] [address] Chucho Joshi MD [address] [facility] [address] [place] [address] Medical Devices Implanted Type Area Hooker Operator Device Identifier Shelf Expiration Date Model / Serial / Lot Tibial Baseplate Implanted:Qty: 1 on 10/12/2024 by Chucho Joshi MD at [facility] Left: Knee [employer] 03/21/2032 [id number] / / [id number] Articular Insert Implanted:Qty: 1 on 10/12/2024 by Chucho Joshi MD at [facility] Left: Knee [employer] 10/28/2031 [id number] / / [id number] Legion Por Cr Walton Fem L Sz 4 Implanted:Qty: 1 on 10/12/2024 by Chucho Joshi MD at [facility] Left: Knee [employer] 01/04/2032 [id number] / / [id number] Procedures Procedure Name Priority Date/Time Associated Diagnosis Comments XR KNEE LEFT 4VW OR MORE Routine 11/08/2024 9:41 AM FUNDRAISING SPECIALIST Status post total left knee replacement IMAGING/RADIOLOGY/ XRAY RESULTS ORDER 10/17/2024 2:05 AM FUNDRAISING SPECIALIST CARDIAC RHYTHM STRIP ORDER 10/17/2024 2:04 AM FUNDRAISING SPECIALIST APHERESIS/TRANSFUS ION ORDER 10/17/2024 2:04 AM FUNDRAISING SPECIALIST HGB HCT PANEL AM Draw 10/13/2024 2:33 AM FUNDRAISING SPECIALIST Osteoarthritis, unspecified osteoarthritis type, unspecified site OT EVAL AND TREAT Routine 10/12/2024 12:50 PM FUNDRAISING SPECIALIST ENDOTRACHEAL TUBE NOTE Routine 10/12/2024 11:29 AM FUNDRAISING SPECIALIST PERIPHERAL BLOCK Routine 10/12/2024 10:51 AM FUNDRAISING SPECIALIST BLOOD TYPE VERIFICATION Routine 10/12/2024 9:47 AM FUNDRAISING SPECIALIST NH TOTAL KNEE REPLACEMENT 10/12/2024 9:29 AM FUNDRAISING SPECIALIST Primary osteoarthritis of left knee Case Notes Assisting surgeon: YONY OGLESBY Special Needs SUPINE IPACK AND ADDUCTOR CANAL BLOCK PER ANESTHESIA FOR KNEES VEGA AND NEPHEW: Jonathan Villalba,[phone] MAMMO BILAT IMPLANT SCREEN W BRAYDON Routine 09/07/2023 3:45 PM CDT Encounter for screening mammogram for malignant neoplasm of breast from Last 3 Months or Most Recently Relevant to Health Maintenance Results * XR Knee Left 4Vw or More (11/08/2024 9:41 AM FUNDRAISING SPECIALIST) Anatomical Region Laterality Modality Lower Extremity Radiographic Shu ging 11/08/2024 9:59 AM FUNDRAISING SPECIALIST Narrative 11/08/2024 10:00 AM FUNDRAISING SPECIALIST PROCEDURE: XR KNEE LEFT 4VW OR MORE [...] RADIOLOGY XRAY RESULTS ORDER (10/17/2024 2:05 AM FUNDRAISING SPECIALIST) Anatomical Region Laterality Modality Other Narrative 10/17/2024 2:05 AM FUNDRAISING SPECIALIST Ordered by an unspecified provider. Scanned Document IMAGING * CARDIAC RHYTHM STRIP ORDER (10/17/2024 2:04 AM FUNDRAISING SPECIALIST) Narrative 10/17/2024 2:04 AM FUNDRAISING SPECIALIST Ordered by an unspecified provider. Scanned Document CARDIAC SERVICES ORD ERABLES * APHERESIS/TRANSFUSION ORDER (10/17/2024 2:04 AM FUNDRAISING SPECIALIST) Narrative 10/17/2024 2:04 AM FUNDRAISING SPECIALIST Ordered by an unspecified provider. Scanned Document NURSING - VITAL SIGN S AND ASSESSMENT * (ABNORMAL) HGB HCT PANEL (10/13/2024 2:33 AM FUNDRAISING SPECIALIST) Hemoglobin 10.6(L) 11.9 - 15.8 g/dL 10/13/2024 3:01 AM FUNDRAISING SPECIALIST [facility] Hematocrit 31.6(L) 34.8 - 46.1 % 10/13/2024 3:01 AM FUNDRAISING SPECIALIST [facility] Blood BLOOD SPECIMEN / Unknown Lab Venipuncture / Unknown 10/13/2024 2:33 AM FUNDRAISING SPECIALIST 10/13/2024 2:56 AM FUNDRAISING SPECIALIST Chucho Joshi MD LAB - HEMATOLOGY OR DERABLES [facility] [address] [place] [address] * ETT LINE PERFORMABLE (10/12/2024 11:29 AM FUNDRAISING SPECIALIST) Narrative Anupama Alejandre APRN-CRNA - 10/12/2024 11:29 AM FUNDRAISING SPECIALIST Anupama Alejandre APRN-CRNA 10/12/2024 11:29 AM Endotracheal Tube Placement: Patient Location: OR. Intubation Event Date/Time: 10/12/2024 11:11 AM Procedure: intubation ([id number]) Procedure Section: Sedation: under general anesthesia. Indications [...] * Peripheral Nerve Block (10/12/2024 10:51 AM FUNDRAISING SPECIALIST) Narrative Redd Garvin MD - 10/12/2024 10:51 AM FUNDRAISING SPECIALIST Redd Garvin MD 10/12/2024 10:53 AM Peripheral [...] * BLOOD TYPE VERIFICATION (10/12/2024 9:47 AM FUNDRAISING SPECIALIST) ABO Rh A POS 10/12/2024 10:14 AM FUNDRAISING SPECIALIST [facility] Blood Bank BLOOD SPECIMEN / Unknown Venipuncture / Unknown 10/12/2024 9:47 AM FUNDRAISING SPECIALIST 10/12/2024 9:54 AM FUNDRAISING SPECIALIST Timothy Garcia MD LAB - BLOOD BANK ORD ERABLES [facility] [address] [place] [address], [facility] [phone] * MAMMO BILAT IMPLANT SCREEN W BRAYDON [...] If there are any questions, please call [phone]. OVERALL ASSESSMENT: BI-RADS CATEGORY 2: BENIGN. > Interpreting Provider: Roseline Ayala DO on 09/20/2023 2:08 PM Narrative 09/20/2023 2:08 PM CDT EXAMINATION: DIGITAL MAMMO BILAT IMPLANT SCREEN W BRAYDON AND WITH CAD LOCATION: [facility] EXAM DATE: 09/07/2023 HISTORY: New baseline screening [...] screening mammography. For further information, please call [phone]. COMPARISON: No prior mammograms are available for comparison. Previous mammograms have been performed in 2009 and before. Prior images have been purged [...] either breast. Xenia Carcamo MD MAMMO ORDERABLES from Last 3 Months or Most Recently Relevant to Health Maintenance Advance Directives * Full Code (Latest Code Status on File) Date Activated Date Inactivated Comments 10/12/2024 12:50 PM 10/13/2024 2:25 PM Care Teams Defence Intelligence Analyst Relationship Specialty Start Date End Date Beth Pereyra MD [address] [id number] PCP - General Internal Medicine 07/07/23
--- OUTSIDE RECORDS SUMMARY | 2025-01-12 09:26 | XMS_ITS | Encounter Summary ---
Author Organization [facility] Address [address] [place] [address] Care Team Providers Care Ice House Supervisor Name Role Phone Beth Pereyra MD Primary Care Provider [phone] Paul Ariza MD Unavailable [phone] Chucho Joshi MD Unavailable [phone] Encounter Details Date Type Department Care Team (Late Contact Info) Description 07/11/2024 [facility] [place] [address] Luis Miguel [facility] Provider lab results Social History Tobacco Use Types Packs/Day Years [...] Description 09/05/2025 2:00 PM CDT [facility] [address] [facility] [address] [place] [address] Beth Pereyra MD [address] [address] 09/05/2025 3:00 PM CDT Office Visit [facility] Multispecialty Care [place] [address] [place] [address] [address] [place] [address] Beth Pereyra MD [facility] [address] [address] documented as of this encounter Visit Diagnoses Not on filedocumented in this encounter Care Teams Ice House Supervisor Relationship Specialty Start Date End Date Beth Pereyra MD [address] [place] [address] PCP - General INTERNAL MEDICINE 05/04/23 Paul Ariza MD 1 [place] [address] ORTHOPAEDIC SURGERY 08/23/24 08/23/24 [place] [address] [place] [address] ORTHOPAEDIC SURGERY 08/23/24 documented as of this encounter
--- OUTSIDE RECORDS SUMMARY | 2025-01-12 09:26 | XMS_ITS | Clinical Summary ---
Author Organization [facility] [employer] Address [address] [place] [address] Care Team Providers Care Mining Engineering Technologist Name Role Phone Beth Pereyra MD Primary Care Provider [phone] Source Comments [facility] [employer],non-owned Affiliates and Associated Physician Practices is amultiple site organization consisting of ambulatory clinics and hospital sitesin [place], [place], [place] and [place]. This disclosure is being madepursuant to the Care Everywhere program and may not contain all informatio navailable regarding this patient. Last updated 18.[facility] [employer] Allergies No known active allergies Medications * Be aware that medications may not be up to date on this document. Alwaysverify current medications with the patient. Medication Sig Dispensed Refills Start Date End Date Status pregabalin (Lyrica) 50 MG capsuleIndications:N europathic Pain Take 1 (one) capsule by mouth 2 times daily for 30 days Reasons: Neuropathic Pain 60 capsule 4 Active famotidine (Pepcid) 20 MG tabletIndications:Ga stroesophageal [...] site 10/12/2024 Acquired leg length discrepancy 09/02/2023 Encounters Date Type Department Care Team Description 11/30/2024 Telephone [facility] - Orthopedic Surgery [address] [place] [phone] Chucho Joshi MD Follow-up 11/15/2024 Telephone [facility] - Orthopedic Surgery [address] [place] [phone] Chucho Joshi MD Question 11/08/2024 9:45 AM ANTENNA DESIGN ENGINEER Office Visit [facility] - Orthopedic Surgery [address] [place] [phone] Chucho Joshi MD Status post total left knee replacement (Primary Dx) 11/08/2024 9:36 AM ANTENNA DESIGN ENGINEER - 11/08/2024 11:59 PM ANTENNA DESIGN ENGINEER Hospital Encounter [facility] - Orthopedics [address] [place] [address], [address] [place] [phone] Chucho Joshi MD Discharge Disposition: Home or Self Care 11/08/2024 Travel 10/31/2024 Orders Only [facility] - Orthopedic Surgery [address] [place] [phone] Chucho Joshi MD Status post total left knee replacement 10/24/2024 Telephone [facility] - Orthopedic Surgery [address] [place] [phone] Chucho Joshi MD Refill Request 10/24/2024 Refill [facility] - [facility] [address] [place] [phone] Chucho Joshi MD MEDICATION REFILL 10/18/2024 Telephone [facility] - Orthopedic Surgery [address] [place] [phone] Chucho Joshi MD Case Management 10/12/2024 11:02 AM ANTENNA DESIGN ENGINEER Anesthesia Event [facility] [address] [place] [address] Redd Garvin MD Will Anupama Alfonso, CYCLING INSTRUCTOR-A AUXILIARY 10/12/2024 10:45 AM ANTENNA DESIGN ENGINEER - 10/12/2024 1:15 PM ANTENNA DESIGN ENGINEER Surgery [facility] [address] [place] [address] Chucho Joshi MD ARTHROPLASTY TOTAL KNEE 10/12/2024 9:17 AM ANTENNA DESIGN ENGINEER - 10/13/2024 1:25 PM ANTENNA DESIGN ENGINEER Hospital Encounter [facility] 2 ORTHO/NEW VIS [address] [place] [address] Chucho Joshi MD Surgery General Discharge Disposition: Home Health Care [facility] 10/12/2024 Travel from Last 3 Months Immunizations Name Administration Dates Next Due COVID PFIZER BIVALENT 12Y+ 30mcg/0.3ML Covid Pfizer primary Monovalent 12+ yr 0.3ml Family History Medical History Relation Name Comments Cancer - Other Father Cancer - Colon Mother Cancer - Other Mother Cancer - Breast Sister Relation Name Status Comments Father Mother Sister Alive Social History Tobacco Use Types Packs/Day Years [...] Comments Blood Pressure 120/64 10/13/2024 7:39 AM ANTENNA DESIGN ENGINEER Pulse 69 10/13/2024 7:39 AM ANTENNA DESIGN ENGINEER Temperature 36.9 C (98.5 F) 10/13/2024 7:39 AM ANTENNA DESIGN ENGINEER Respiratory Rate 16 10/13/2024 7:39 AM ANTENNA DESIGN ENGINEER Oxygen Saturation 99% 10/13/2024 7:39 AM ANTENNA DESIGN ENGINEER Inhaled Oxygen Concentration - - Weight 48.5 kg (107 lb) 11/08/2024 9:39 AM ANTENNA DESIGN ENGINEER Height 157.5 cm (5' 2 ) 11/08/2024 9:39 AM ANTENNA DESIGN ENGINEER Body Mass Index 19.57 11/08/2024 9:39 AM ANTENNA DESIGN ENGINEER Plan of Treatment Upcoming Encounters Date Type Department Care Team (Late st Contact Info) Description 03/14/2025 10:00 AM CDT Office Visit [facility] - Orthopedic Surgery [address] [place] [address] Chucho Joshi MD [address] [facility] [address] [place] [address] Health Maintenance Due Date Last Done Comments BONE DENSITY TESTING 1959 COLOGUARD (AGES 45-75) - COLON CA SCREENING 1959 COLON MONITORING 1959 COLONOSCOPY - COLON CA SCREENING 1959 CT COLONOGRAPHY - COLON CA SCREENING 1959 Colorectal Cancer Screening 1959 FIT - COLON CA SCREENING 1959 FLEX SIG - COLON CA SCREENING 1959 LIPID TESTING 1959 MEDICARE AWV 12 MONTHS 1959 HIV SCREENING 1974 HEPATITIS C SCREENING 05/09/1977 DTAP/TDAP/TD VACCINES (1 - Tdap) 1978 PNEUMOCOCCAL VACCINE 50+ (1 of 1 - PCV) 2009 ZOSTER VACCINE (1 of 2) 2009 COVID-19 VACCINE ( - 2023- season) 2024 08/19/2023, 09/07/2022, 03/23/2022, Additional history exists DEPRESSION SCREENING 11/29/2024 11/08/2024 MAMMOGRAM 09/07/2025 09/07/2023, 09/07/2023 PAP SMEAR 08/30/2026 08/30/2023 Respiratory Syncytial Virus (RSV) Vaccine Pt: or over 60 yrs (1 - 1-dose 75+ series) 2034 INFLUENZA VACCINE Completed 08/12/2024, , 09/07/2022, Additional history exists HEPATITIS B VACCINE Aged Out No longe r eligible based on patient's age to complete this topic HIB VACCINE Aged Out No longer eligi ble based on patient's age to complete this topic HPV VACCINE Aged Out No longer eligi ble based on patient's age to complete this topic MENINGOCOCCAL (Group B) VACCINE Aged Out No longer eligible based on patient's age to complete this topic MENINGOCOCCAL VACCINE Aged Out No lesley evonne eligible based on patient's age to complete this topic Medical Devices Implanted Type Area Meter Reading Clerk Device Identifier Shelf Expiration Date Model / Serial / Lot Tibial Baseplate Implanted:Qty: 1 on 10/12/2024 by Chucho Joshi MD at [facility] [place][note 2] Left: Knee [employer] 03/21/2032 [id number] / / [id number] Articular Insert Implanted:Qty: 1 on 10/12/2024 by Chucho Joshi MD at [facility] [place][note 2] Left: Knee [employer] 10/28/2031 [id number] / / [id number] Legion Por Cr Walton Fem L Sz 4 Implanted:Qty: 1 on 10/12/2024 by Chucho Joshi MD at [facility] [place][note 2] Left: Knee [employer] 01/04/2032 [id number] / / [id number] Procedures Procedure Name Priority Date/Time Associated Diagnosis Comments XR KNEE LEFT 4VW OR MORE Routine 11/08/2024 9:41 AM ANTENNA DESIGN ENGINEER Status post total left knee replacement IMAGING/RADIOLOGY/ XRAY RESULTS ORDER 10/17/2024 2:05 AM ANTENNA DESIGN ENGINEER CARDIAC RHYTHM STRIP ORDER 10/17/2024 2:04 AM ANTENNA DESIGN ENGINEER APHERESIS/TRANSFUS ION ORDER 10/17/2024 2:04 AM ANTENNA DESIGN ENGINEER HGB HCT PANEL AM Draw 10/13/2024 2:33 AM ANTENNA DESIGN ENGINEER Osteoarthritis, unspecified osteoarthritis type, unspecified site OT EVAL AND TREAT Routine 10/12/2024 12:50 PM ANTENNA DESIGN ENGINEER ENDOTRACHEAL TUBE NOTE Routine 10/12/2024 11:29 AM ANTENNA DESIGN ENGINEER PERIPHERAL BLOCK Routine 10/12/2024 10:51 AM ANTENNA DESIGN ENGINEER BLOOD TYPE VERIFICATION Routine 10/12/2024 9:47 AM ANTENNA DESIGN ENGINEER IN TOTAL KNEE REPLACEMENT 10/12/2024 9:29 AM ANTENNA DESIGN ENGINEER Primary osteoarthritis of left knee Case Notes Assisting surgeon: YONY OGLESBY Special Needs SUPINE IPACK AND ADDUCTOR CANAL BLOCK PER ANESTHESIA FOR KNEES VEGA AND NEPHLUISA: Jonathan Villalba,[phone] MAMMO BILAT IMPLANT SCREEN W BRAYDON Routine 09/07/2023 3:45 PM CDT Encounter for screening mammogram for malignant neoplasm of breast from Last 3 Months or Most Recently Relevant to Health Maintenance Results * XR Knee Left 4Vw or More (11/08/2024 9:41 AM ANTENNA DESIGN ENGINEER) Anatomical Region Laterality Modality Lower Extremity Radiographic Shu ging 11/08/2024 9:59 AM ANTENNA DESIGN ENGINEER Narrative 11/08/2024 10:00 AM ANTENNA DESIGN ENGINEER PROCEDURE: XR KNEE LEFT 4VW OR MORE [...] RADIOLOGY XRAY RESULTS ORDER (10/17/2024 2:05 AM ANTENNA DESIGN ENGINEER) Anatomical Region Laterality Modality Other Narrative 10/17/2024 2:05 AM ANTENNA DESIGN ENGINEER Ordered by an unspecified provider. Scanned Document IMAGING * CARDIAC RHYTHM STRIP ORDER (10/17/2024 2:04 AM ANTENNA DESIGN ENGINEER) Narrative 10/17/2024 2:04 AM ANTENNA DESIGN ENGINEER Ordered by an unspecified provider. Scanned Document CARDIAC SERVICES ORD ERABLES * APHERESIS/TRANSFUSION ORDER (10/17/2024 2:04 AM ANTENNA DESIGN ENGINEER) Narrative 10/17/2024 2:04 AM ANTENNA DESIGN ENGINEER Ordered by an unspecified provider. Scanned Document NURSING - VITAL SIGN S AND ASSESSMENT * (ABNORMAL) HGB HCT PANEL (10/13/2024 2:33 AM ANTENNA DESIGN ENGINEER) Hemoglobin 10.6(L) 11.9 - 15.8 g/dL 10/13/2024 3:01 AM ANTENNA DESIGN ENGINEER [facility] Hematocrit 31.6(L) 34.8 - 46.1 % 10/13/2024 3:01 AM ANTENNA DESIGN ENGINEER [facility] Blood BLOOD SPECIMEN / Unknown Lab Venipuncture / Unknown 10/13/2024 2:33 AM ANTENNA DESIGN ENGINEER 10/13/2024 2:56 AM ANTENNA DESIGN ENGINEER Chucho Joshi MD LAB - HEMATOLOGY OR DERABLES [facility] [address] [place] [address] * ETT LINE PERFORMABLE (10/12/2024 11:29 AM ANTENNA DESIGN ENGINEER) Narrative Anupama Alejandre APRN-CRNA - 10/12/2024 11:29 AM ANTENNA DESIGN ENGINEER Anupama Alejandre APRN-CRNA 10/12/2024 11:29 AM Endotracheal Tube Placement: Patient Location: OR. Intubation Event Date/Time: 10/12/2024 11:11 AM Procedure: intubation ([id number]) Procedure Section: Sedation: under general anesthesia. Indications [...] * Peripheral Nerve Block (10/12/2024 10:51 AM ANTENNA DESIGN ENGINEER) Narrative Redd Garvin MD - 10/12/2024 10:51 AM ANTENNA DESIGN ENGINEER Redd Garvin MD 10/12/2024 10:53 AM Peripheral [...] * BLOOD TYPE VERIFICATION (10/12/2024 9:47 AM ANTENNA DESIGN ENGINEER) ABO Rh A POS 10/12/2024 10:14 AM ANTENNA DESIGN ENGINEER [facility] Blood Bank BLOOD SPECIMEN / Unknown Venipuncture / Unknown 10/12/2024 9:47 AM ANTENNA DESIGN ENGINEER 10/12/2024 9:54 AM ANTENNA DESIGN ENGINEER Timothy Garcia MD LAB - BLOOD BANK ORD ERABLES [facility] [address] [phone] * MAMMO BILAT IMPLANT SCREEN W BRAYDON [...] If there are any questions, please call [phone]. OVERALL ASSESSMENT: BI-RADS CATEGORY 2: BENIGN. > Interpreting Provider: Roseline Ayala DO on 09/20/2023 2:08 PM Narrative 09/20/2023 2:08 PM CDT EXAMINATION: DIGITAL MAMMO BILAT IMPLANT SCREEN W BRAYDON AND WITH CAD LOCATION: [facility] EXAM DATE: 09/07/2023 HISTORY: New baseline screening [...] screening mammography. For further information, please call [phone]. COMPARISON: No prior mammograms are available for [...] 12:50 PM 10/13/2024 2:25 PM Care Teams Mining Engineering Technologist Relationship Specialty Start Date End Date Beth Pereyra MD [address] [address] PCP - General Internal Medicine 07/07/23
--- OUTSIDE RECORDS SUMMARY | 2025-01-12 09:26 | XMS_ITS | Encounter Summary ---
Author Organization [facility] Address [address] [place] [address] Care Team Providers Care Physical Instructor Name Role Phone Beth Pereyra MD Primary Care Provider [phone] Paul Ariza MD Unavailable Chucho Joshi MD Unavailable [phone] Encounter Details Date Type Department Care Team (Late Contact Info) Description 07/11/2024 [employer] Message Enc [place] [address] [facility] [address] [place] [address] Luis Miguel [facility] Provider EKG results Social History Tobacco Use Types Packs/Day [...] Description 09/05/2025 2:00 PM CDT [facility] [address] [place] [address] Beth Pereyra MD [address] [address] 09/05/2025 3:00 PM CDT Office Visit [facility] Care - [place] [address] [address] [place] [address] Beth Pereyra MD [facility] [address] [address] documented as of this encounter Visit Diagnoses Not on filedocumented in this encounter Care Teams Physical Instructor Relationship Specialty Start Date End Date Beth Pereyra MD [address] [place] [address] PCP - General INTERNAL MEDICINE 05/04/23 Paul Ariza MD 1 [place] [address] ORTHOPAEDIC SURGERY 08/23/24 08/23/24 Chucho Joshi MD [address] [place] [address] ORTHOPAEDIC SURGERY 08/23/24 documented as of this encounter
== END 2025-01-12 09:16 | disposition home or self-care (01) ==
LOC: ANHIMG 09:21
PROVIDERS: PCP Internal Medicine; Visit Provider Internal Medicine
DX: R92.8 Other abnormal and inconclusive findings on diagnostic imaging of breast (principal)
CPT/HCPCS: 76641

== ENCOUNTER 2025-02-05 14:23 | Outpatient (CLI) | payer MEDICARE, SELFPAY ==
--- NOTE | ~2025-02-05 | DEXA_ITS ---
Bone Density Report Name: MER BRAN Age: 64 Sex: Female Ethnicity: White Date of : 1960 Indication: postmenopausal; screening for osteoporosis; anorexia or bulimia; Referring Provider: RYLAN, NEL Study: Bone densitometry was performed. Exam Date: February 05, 2025 Accession number: [id number] Bone Density: Region BMD T-score Z-score Classification AP Spine(L1-L4) 1.045 0.0 1.8 Normal Femoral Neck (Left) 0.660 -1.7 -0.2 Osteopenia Total Hip (Left) 0.825 -1.0 0.3 Normal Femoral Neck (Right) 0.694 -1.4 0.1 Osteopenia Total Hip (Right) 0.866 -0.6 0.6 Normal Total Hip Mean 0.846 -0.8 0.5 Normal World Health Organization criteria for BMD impression classify patients as: Normal (T-score at or above -1.0), Osteopenia (T-score between -1.0 and -2.5), or Osteoporosis (T-score at or below -2.5). 10-year Fracture Risk(1): Major Osteoporotic Fracture 8.0% Hip Fracture 1.0% Reported Risk Factors: [place] (), Neck BMD=0.660, BMI=19.1 (1) FRAX(R) Version 3.08. Fracture probability calculated for an untreated patient. Fracture probability may be lower if the patient has received treatment. Clinical Information Provided by Patient: Has used the following medications: Vitamin D, Calcium Has the following medical conditions: Anorexia or Bulimia Patient maximum height was 62.0 Menopause Age: 49 Drinks caffeinated beverages Onset of menses at age 13 Number of children 3 Missed period for more than 6 months in a row Impression: The patient has low bone mass, based on the Left Femoral Neck T-score. The patient has an estimated ten-year risk of hip fracture of 1% and an estimated ten-year risk of major fracture of 8%, based on the WHO FRAX algorithm. Discussion: BONE DENSITY IS LOW AT ONE OR MORE SKELETAL SITES. This patient's lowest T-score is low at one or more skeletal sites. It meets the World Health Organization's (WHO) criteria for ?low bone mass? (T-score between -1.0 and -2.5). The patient's 10-year risk of fracture as calculated by FRAX is less than the threshold where pharmacological therapy is recommended by the National Osteoporosis Foundation (NOF). However, all treatment decisions require clinical judgment and consideration of individual patient factors, including patient preferences, comorbidities, previous drug use, risk factors not captured in the FRAX model (e.g., frailty, falls, vitamin D deficiency, increased bone turnover, interval significant decline in bone density) and possible under or overestimation of fracture risk by FRAX. The patient should follow a healthful lifestyle (good nutrition with adequate calcium and vitamin D, and appropriate weight-bearing exercise). Follow-Up: Consider repeating this study in 2 to 3 years to reassess this patient's status, or sooner if there is some new clinical indication. Reported by: HARJIT on 02/05/2025 2:58:00 PM. Reviewed, dictated and finalized at location ANathaniel STEINBERG
--- OUTSIDE RECORDS SUMMARY | 2025-02-05 16:48 | XMS_ITS | Encounter Summary ---
Author Organization [facility] Address [address] [place] [address] Care Team Providers Care Wastewater Process Engineer Name Role Phone Beth Pereyra MD Primary Care Provider Paul Ariza MD Unavailable [phone] Chucho Joshi MD Unavailable [phone] Encounter Details Date Type Department Care Team (Latest Contact Info) Description 06/27/2023 MyChart Message Enc [facility] - [address] [address] Beth Pereyra MD [facility] [address] [address] Concerning my record Social History [...] Description 09/05/2025 2:00 PM CDT Office Visit [facility] [place] [address] [place] [address] Beth Pereyra MD [facility] [address] [address] 09/05/2025 3:00 PM CDT Office Visit [facility] Mult[facility]ialty Care [place] [address] [address] [place] [address] Beth Pereyra MD 1188 [facility] [address] [place] [address] documented as of this encounter Visit Diagnoses Not on filedocumented in this encounter Care Teams Wastewater Process Engineer Relationship Specialty [place] [address] [place] [address] PCP - General INTERNAL MEDICINE 05/04/23 Paul Ariza MD 1 [place] [address] ORTHOPAEDIC SURGERY 08/23/24 08/23/24 Chucho Joshi MD [address] [place] [address] ORTHOPAEDIC SURGERY 08/23/24 documented as of this encounter
--- OUTSIDE RECORDS SUMMARY | 2025-02-05 16:48 | XMS_ITS | Encounter Summary ---
Author Organization [facility] Address [address] [place] [address] Care Team Providers Care Test Technician Name Role Phone Beth Pereyra MD Primary Care Provider [phone] Paul Ariza MD Unavailable [phone] Chucho Joshi MD Unavailable [phone] Encounter Details Date Type Department Care Team (Latest Contact Info) Description 06/27/2024 [facility] [address] [address] Beth Pereyra MD [address] [place] [address] Wellness Welcome to Medicare Social History [...] Description 09/05/2025 2:00 PM CDT Office Visit [facility] Medical [facility]pec[facility]ty [address] [place] [address] Beth Pereyra MD [address] [address] 09/05/2025 3:00 PM CDT Office Visit [facility] Multispecialty Care - [place] [address] [address] [place] [address] Beth Pereyra MD [facility] [address] [address] documented as of this encounter Visit Diagnoses Not on filedocumented in this encounter Care Teams Test Technician Relationship Specialty Start Date End Date Beth Pereyra MD [address] [place] [address] PCP - General INTERNAL MEDICINE 05/04/23 Paul Ariza MD 1 [place] [address] ORTHOPAEDIC SURGERY 08/23/24 08/23/24 Chucho Joshi MD [address] [place] [address] ORTHOPAEDIC SURGERY 08/23/24 documented as of this encounter
--- OUTSIDE RECORDS SUMMARY | 2025-02-05 16:48 | XMS_ITS | Data Portability ---
Author Organization [facility] Address [address] [place] [address] Assessment Encounter Date Assessment Date Assessment LastModified [...] digital, bilateral 2015 016 [email or web address] 1 [facility] ([facility] Scheduling, [address] [place] [address], [address], 6 10:22:10 Medication Orders None recorded. Patient TargetsNo targets recorded. Patient InstructionsNo instructions recorded. Reason for Referral Plastic Surgeon Referral for Rupture of breast implant Referring Physician: Ever Brennan, STORE HOST, Encounter Date: 01/28/2016 Problems Name Problem SNOMED Code Status Onset Date Resolution Date Notes Provider Name and Address Organization Details Recorded Time Rupture of breast implant [id number] Active Ever [email or web address] [facility] 6 17:47:53 Problem Notes None recorded. Medical [...] Details Last Updated DateTime 01/28/2016 20 kg/m2 44689.00 5278 g 157.48 cm 130 mm[Hg] 82 mm[Hg] Susancatrachita RuizJOAN [place] - [facility] 16:00:18 Social History Question Answer Notes LastModified by Organizat ion Details LastModified Time Tobacco Smoking Status Never Smoker Susan Ruiz MA null, [facility] 01/28/2016 16:00:19 What Is Your Level Of Alcohol Consumption? Moderate [email or web address] Information not available 01/28/2016 What Is Your Level Of Caffeine Consumption? Moderate [facility] Information not available 01/28/2016 What Is Your Relationship Status? [facility] medical Information not available 01/28/2016 Sex: Unknown Functional Status None recorded. Mental Status None recorded. Family History Relationship Description Onset Age of this Age Resolved Age Notes LastModified by Organization Details LastModified Time Father Hypertensive disorder [place] [address] Not available 2015 16:00:18 Notes:mother and father [...] SNOMED-CT Code Diagnosis ICD10 Code Diagnosis Note [id number] Ever Hernández [facility]omens ([facility] [[email or web address] 122) [address] [phone] 01/28/2016 15:30:17 01/29/2016 10:05:12 Gynecologic examination 16527517 Z01.419 Screening mammography 24 374359 Z12.31 Rupture of breast implant 103642322 T85.49XA Health Concerns Section Related Observation LastModified by Organization Detai ls LastModified Time None Recorded Concern Status LastModified by Organization Details LastModified Time None Recorded Advance Directives Directive None Recorded Payers Encounter Date Sequence Insurance Name Policy Number Policy Villa Covered Member ID Villa Member ID Guarantor Name 01/28/2016 1 [facility]) [id number] Christina Jack [id number] Christina Jack Notes Date Note Type Note Provider Name and Address Organization Details Recorded Time 01/28/2016 text/html 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
--- OUTSIDE RECORDS SUMMARY | 2025-02-05 16:48 | XMS_ITS | Encounter Summary ---
Author Organization [facility] Address [address] [place] [address] Care Team Providers Care Home Care Coordinator Name Role Phone Beth Pereyra MD Primary Care Provider [phone] Paul Ariza MD Unavailable Chucho Joshi MD Unavailable [phone] Encounter Details Date Type Department Care Team (Latest Contact Info) Description 09/25/2023 [facility] [address] Beth Pereyra MD [address] [place] [address] Breast Cancer Screening Social History Tobacco [...] 2:00 PM CDT Office Visit [facility] Multispecialty [address] [place] [address] Beth Pereyra MD [address] [address] 09/05/2025 3:00 PM CDT Office Visit [facility] Multispecialty Care - [place] [address] [address] [place] [address] Beth Pereyra MD [facility] [address] [address] documented as of this encounter Visit Diagnoses Not on filedocumented in this encounter Care Teams Home Care Coordinator Relationship Specialty Start Date End Date Beth Pereyra MD [address] [place] [address] PCP - General INTERNAL MEDICINE 05/04/23 Paul Ariza MD 1 [place] [address] ORTHOPAEDIC SURGERY 08/23/24 08/23/24 Chucho Joshi MD [address] [place] [address] ORTHOPAEDIC SURGERY 08/23/24 documented as of this encounter
--- OUTSIDE RECORDS SUMMARY | 2025-02-05 16:48 | XMS_ITS | Encounter Summary ---
Author Organization [facility] Address [address] [place] [address] Care Team Providers Care National Sales Director Name Role Phone Beth Pereyra MD Primary Care Provider [phone] Paul Ariza MD Unavailable [phone] Chucho Joshi MD Unavailable [phone] Encounter Details Date Type Department Care Team (Late Contact Info) Description 07/04/2023 [facility] [address] Beth Pereyra MD [address] [place] [address] Thank you Social History Tobacco Use [...] Description 09/05/2025 2:00 PM CDT Office Visit [facility] Multispecialty [address] [place] [address] Beth Pereyra MD [address] [address] 09/05/2025 3:00 PM CDT Office Visit [facility] Multispecialty Care - [place] [address] [address] [place] [address] Beth Pereyra MD [facility] [address] [address] documented as of this encounter Visit Diagnoses Not on filedocumented in this encounter Care Teams National Sales Director Relationship Specialty Start Date End Date Beth Pereyra MD [address] [place] [address] PCP - General INTERNAL MEDICINE 05/04/23 Paul Ariza MD 1 [place] [address] ORTHOPAEDIC SURGERY 08/23/24 08/23/24 Chucho Joshi MD [address] [place] [address] ORTHOPAEDIC SURGERY 08/23/24 documented as of this encounter
--- OUTSIDE RECORDS SUMMARY | 2025-02-05 16:48 | XMS_ITS | Encounter Summary ---
Author Organization [facility] Address [address] [place] [address] Care Team Providers Care Solar Installer Technician Name Role Phone Beth Pereyra MD Primary Care Provider [phone] Paul Ariza MD Unavailable [phone] Chucho Joshi MD Unavailable [phone] Encounter Details Date Type Department Care Team (Late Contact Info) Description 08/20/2023 [facility] [address] [address] Beth Pereyra MD [address] [place] [address] Vaccine updates Social History Tobacco Use [...] PM CDT Office Visit [facility] Multispecialty [address] [place] [address] Beth Pereyra MD [address] [address] 09/05/2025 3:00 PM CDT Office Visit [facility] Multispecialty Care - [place] [address] [address] [place] [address] Beth Pereyra MD [facility] [address] [address] documented as of this encounter Visit Diagnoses Not on filedocumented in this encounter Care Teams Solar Installer Technician Relationship Specialty Start Date End Date Beth Pereyra MD [address] [place] [address] PCP - General INTERNAL MEDICINE 05/04/23 Paul Ariza MD 1 [place] [address] ORTHOPAEDIC SURGERY 08/23/24 08/23/24 Chucho Joshi MD [address] [place] [address] ORTHOPAEDIC SURGERY 08/23/24 documented as of this encounter
--- OUTSIDE RECORDS SUMMARY | 2025-02-05 16:48 | XMS_ITS | Encounter Summary ---
Author Organization [facility] Address [address] [place] [address] Care Team Providers Care Communications Programmer Name Role Phone Beth Pereyra MD Primary Care Provider [phone] Paul Ariza MD Unavailable [phone] Chucho Joshi MD Unavailable [phone] Encounter Details Date Type Department Care Team (Late Contact Info) Description 07/17/2023 [facility] [address] Beth Pereyra MD [address] [place] [address] [address] Pelaez Social History Tobacco Use [...] Description 09/05/2025 2:00 PM CDT Office Visit [facility] Multispecialty [address] [place] [address] Beth Pereyra MD [address] [address] 09/05/2025 3:00 PM CDT Office Visit [facility] Multispecialty Care - [place] [address] [address] [place] [address] Beth Pereyra MD [facility] [address] [address] documented as of this encounter Visit Diagnoses Not on filedocumented in this encounter Care Teams Communications Programmer Relationship Specialty Start Date End Date Beth Pereyra MD [address] [place] [address] PCP - General INTERNAL MEDICINE 05/04/23 Paul Ariza MD 1 [place] [address] ORTHOPAEDIC SURGERY 08/23/24 08/23/24 Chucho Joshi MD [address]25 [place] [address] ORTHOPAEDIC SURGERY 08/23/24 documented as of this encounter
--- OUTSIDE RECORDS SUMMARY | 2025-02-05 16:48 | XMS_ITS | Encounter Summary ---
Author Organization [facility] Address [address] [place] [address] Care Team Providers Care Mold Mechanic Name Role Phone Beth Pereyra MD Primary Care Provider [phone] Paul Ariza MD Unavailable [phone] Chucho Joshi MD Unavailable [phone] Encounter Details Date Type Department Care Team (Late st Contact Info) Description 08/20/2024 MyChart Message Enc [facility] Medical Group Multispecialty Care - [address] [place] [address] Beth Pereyra MD [address] [place] [address] Questionnaires Social History Tobacco Use Types [...] Description 09/05/2025 2:00 PM CDT Office Visit [facility] Medical [facility] Multispecialty [facility] - [address] [address] Beth Pereyra MD [address] [place] [address] 09/05/2025 3:00 PM CDT [facility] [address] [address] Beth Pereyra MD [address] [place] [address] documented as of this encounter Visit Diagnoses Not on filedocumented in this encounter Additional Health Concerns Assessment Noted Time PHQ-9 Depression Total Score: 1 08/18/20 24 10:42 AM CDT documented as of this encounter Care Teams Mold Mechanic Relationship Specialty Start Date End Date Beth Pereyra MD [address] [place] [address] PCP - General INTERNAL MEDICINE 05/04/23 Paul Ariza MD 1 [place] [address] ORTHOPAEDIC SURGERY 08/23/24 08/23/24 Chucho Joshi MD [address] [place] [address] ORTHOPAEDIC SURGERY 08/23/24 documented as of this encounter
--- OUTSIDE RECORDS SUMMARY | 2025-02-05 16:48 | XMS_ITS | Clinical Summary ---
Author Organization [facility] Address [address] [place] [address] Care Team Providers Care Transportation Maintenance Supervisor Name Role Phone Beth Pereyra MD Primary Care Provider [phone] Chucho Joshi MD Unavailable Allergies No known active allergies Medications No known medications Active Problems Problem Noted Date Diagnosed Date Breast implant rupture 06/28/2023 Arthritis 06/28/2023 KINAZ (generalized anxiety disorder) 06/28/2023 Encounters Date Type Department Care Team Description 01/16/2025 [facility] [place] [address] [address] [address] [address] [place] [address] Beth Pereyra MD Orders 01/12/2025 Scan [facility] Scanned, Doc [facility] Ultrasound (SCAN) 01/10/2025 [facility] [place] [address] [facility] [address] [place] [address] Beth Pereyra MD Referral 01/02/2025 [facility] [place] [address] [facility] [address] [place] [address] Beth Pereyra MD Follow Up Call 11/25/2024 Scan [facility] Scanned, Doc [facility] Mammogram (SCAN) 11/08/2024 Scan [facility] Scanned, Doc Med Group [...] Shingrix 05/04/2023,02/23/2023 Tdap (Generic) 01/18/2023 Zoster (Zostavax) [address] Unt/0.65Ml 10/11/2017 Family History Medical History Relation [...] kg (107 lb 6.4 oz) 08/23/2024 2:12 PM CDT Height 157.5 cm (5' 2 ) 08/23/2024 2:12 PM CDT Body Mass Index 19.64 08/23/2024 2:12 PM CDT Plan of Treatment Upcoming Encounters Date Type Department Care Team (Late st Contact Info) Description 09/05/2025 2:00 PM CDT Office Visit [facility] Medical [facility] Multispecialty Care - [place] [address] [address] [place] [address] Beth Pereyra MD [address] [place] [address] 09/05/2025 3:00 PM CDT Office Visit [facility] Mult[facility] - [place] [address] [address] [place] [address] Beth Pereyra MD [address] [place] [address] Health Maintenance Due Date Last Done Comments Dexa Scan (General) 2024 PHQ-2 (Physician [place]) 11/29/2024 08/22/2024 Mammogram Screening 11/25/2026 11/25/2024, 11/25/2024, [...] Procedure Name Priority Date/Time Associated Diagnosis Comments ULTRASOUND GENERIC (SCAN ORDER) 01/12/2025 ULTRASOUND GENERIC (SCAN ORDER) 01/12/2025 ULTRASOUND GENERIC (SCAN ORDER) 01/12/2025 MAMMOGRAM GENERIC (SCAN ORDER) 11/25/2024 MAMMOGRAM GENERIC [...] Recently Relevant to Health Maintenance Results * ULTRASOUND GENERIC (SCAN ORDER) (01/12/2025) Only the most recent of3 resultswithin the time period is included. Anatomical Region Laterality Modality Other 01/12/2025 [facility] Scanned SCANNING Final Resu lt * MAMMOGRAM GENERIC (SCAN ORDER) (11/25/2024) Only the most recent of5 resultswithin the time period is included. Anatomical Region Laterality Modality Other 11/25/2024 Result [facility] Scanned SCANNING Final Resu lt * COLONOSCOPY GENERIC (11/18/2023) 11/18/2023 Result [facility] Scanned SCANNING Final Resu lt * HEPATITIS C ANTIBODY (06/28/2023 3:24 PM CDT) HEPATITIS C AB NON-REACTI VE NON-REACT STEFAN 06/28/2023 9:44 PM CDT [facility] Comment: ANTIBODIES TO HCV NOT DETECTED. DOES NOT EXCLUDE THE POSSIBILITY OF EXPOSURE TO HCV. 06/28/2023 3:24 PM CDT Beth Pereyra MD LABORATORY Final Result [facility] [address] [place] [address], [place] [phone] [id number] from Last 3 Months or Most Recently Relevant to Health Maintenance Insurance MEDICARE Care Teams Transportation Maintenance Supervisor Relationship Specialty Start Date End Date Beth Pereyra MD [address] [address] PCP - General INTERNAL MEDICINE 05/04/23 Chucho Joshi MD [address] [place] [address] ORTHOPAEDIC SURGERY 08/23/24
--- OUTSIDE RECORDS SUMMARY | 2025-02-05 16:48 | XMS_ITS | Clinical Summary ---
Author Organization [facility] Address [address] [facility] [place] [address] Care Team Providers Care Neck Band Maker Name Role Phone Beth Pereyra MD Primary Care Provider [phone] Source Comments [facility],non-owned Affiliates and Associated Physician Practices is amultiple site organization consisting of ambulatory clinics and hospital sitesin [place], [place], [place]. This disclosure is being madepursuant to the Care Everywhere program and may not contain all informatio navailable regarding this patient. Last updated 18.[facility] Allergies No known active allergies Medications * [...] Type Department Care Team Description 11/30/2024 Telephone [facility] - Orthopedic Surgery [address] [place] [phone] Chucho Joshi MD Follow-up 11/15/2024 Telephone [facility] - Orthopedic Surgery [address] [place] [phone] Chucho Joshi MD Question 11/08/2024 9:45 AM DEPARTMENTAL BUYER Office Visit [facility] - Orthopedic Surgery [address] [place] [phone] Chucho Joshi MD Status post total left knee replacement (Primary Dx) 11/08/2024 9:36 AM DEPARTMENTAL BUYER - 11/08/2024 11:59 PM DEPARTMENTAL BUYER Hospital Encounter [facility] - Orthopedics [address] [place] [address], [address] [place] [address] Chucho Joshi MD Discharge Disposition: Home or Self Care 11/08/2024 Travel from Last 3 Months Immunizations Name [...] Comments Blood Pressure 120/64 10/13/2024 7:39 AM DEPARTMENTAL BUYER Pulse 69 10/13/2024 7:39 AM DEPARTMENTAL BUYER Temperature 36.9 C (98.5 F) 10/13/2024 7:39 AM DEPARTMENTAL BUYER Respiratory Rate 16 10/13/2024 7:39 AM DEPARTMENTAL BUYER Oxygen Saturation 99% 10/13/2024 7:39 AM DEPARTMENTAL BUYER Inhaled Oxygen Concentration - - Weight 48.5 kg (107 lb) 11/08/2024 9:39 AM DEPARTMENTAL BUYER Height 157.5 cm (5' 2 ) 11/08/2024 9:39 AM DEPARTMENTAL BUYER Body Mass Index 19.57 11/08/2024 9:39 AM DEPARTMENTAL BUYER Plan of Treatment Upcoming Encounters Date Type Department Care Team (Late st Contact Info) Description 03/14/2025 10:00 AM CDT Office Visit [facility] - Orthopedic Surgery [address] [place] [phone] Chucho Joshi MD [address] [address] Health Maintenance Due Date Last Done Comments [...] (1 of 2) 2009 COVID-19 VACCINE ( season) 2024 08/19/2023, 09/07/2022, 03/23/2022, Additional history [...] this topic Medical Devices Implanted Type Area Resistor Winder Device Identifier Shelf Expiration Date Model / Serial / Lot Tibial Baseplate Implanted:Qty: 1 on 10/12/2024 by Chucho Joshi MD at [facility] Left: Knee [employer] 03/21/2032 [id number] / / [id number] Articular Insert Implanted:Qty: 1 on 10/12/2024 by Chucho Joshi MD at [facility] Left: Knee [employer] 10/28/2031 [id number] / / [id number] Legion Por Cr Walton Fem L Sz 4 Implanted:Qty: 1 on 10/12/2024 by Chucho Joshi MD at [facility] Left: Knee [employer] 01/04/2032 [id number] / / [id number] Procedures Procedure Name Priority Date/Time Associated Diagnosis Comments XR KNEE LEFT 4VW OR MORE Routine 11/08/2024 9:41 AM DEPARTMENTAL BUYER Status post total left knee replacement MAMMO BILAT IMPLANT SCREEN W BRAYDON Routine 09/07/2023 3:45 PM CDT Encounter for screening mammogram for malignant neoplasm of breast from Last 3 Months or Most Recently Relevant to Health Maintenance Results * XR Knee Left 4Vw or More (11/08/2024 9:41 AM DEPARTMENTAL BUYER) Anatomical Region Laterality Modality Lower Extremity Radiographic Shu ging 11/08/2024 9:59 AM DEPARTMENTAL BUYER Narrative 11/08/2024 10:00 AM DEPARTMENTAL BUYER PROCEDURE: XR KNEE LEFT 4VW OR MORE [...] Chucho Joshi MD DIAGNOSTIC IMAGING ORDERABLES * MAMMO BILAT IMPLANT SCREEN W BRAYDON [...] If there are any questions, please call [phone]. OVERALL ASSESSMENT: BI-RADS CATEGORY 2: BENIGN. > Interpreting Provider: Roseline Ayala DO on 09/20/2023 2:08 PM Narrative 09/20/2023 2:08 PM CDT EXAMINATION: DIGITAL MAMMO BILAT IMPLANT SCREEN W BRAYDON AND WITH CAD LOCATION: [facility] EXAM DATE: 09/07/2023 HISTORY: New baseline [...] screening mammography. For further information, please call [phone]. COMPARISON: No prior mammograms are available for [...] 12:50 PM 10/13/2024 2:25 PM Care Teams Neck Band Maker Relationship Specialty Start Date End Date Beth Pereyra MD [address] [id number] PCP - General Internal Medicine 07/07/23
--- OUTSIDE RECORDS SUMMARY | 2025-02-05 16:48 | XMS_ITS | Patient Health Summary ---
Author Organization [facility] Address [address] [address] Care Team Providers Care Lpn Or Medical Assistant Name Role Phone Beth Pereyra MD Primary Care Provider [phone] Note from [facility],non-owned Affiliates and Associated Physician Practices is amultiple site organization consisting of ambulatory clinics and hospital sitesin [place], [place], [place] and [place]. This disclosure is being madepursuant to the Care Everywhere program and may not contain all information available regarding this patient. Last updated 18.[facility] Allergies No known active allergies Medications * [...] Comments Blood Pressure 120/64 10/13/2024 7:39 AM INSTRUMENTAL MUSIC TEACHER Pulse 69 10/13/2024 7:39 AM INSTRUMENTAL MUSIC TEACHER Temperature 36.9 C (98.5 F) 10/13/2024 7:39 AM INSTRUMENTAL MUSIC TEACHER Respiratory Rate 16 10/13/2024 7:39 AM INSTRUMENTAL MUSIC TEACHER Oxygen Saturation 99% 10/13/2024 7:39 AM INSTRUMENTAL MUSIC TEACHER Inhaled Oxygen Concentration - - Weight 48.5 kg (107 lb) 11/08/2024 9:39 AM INSTRUMENTAL MUSIC TEACHER Height 157.5 cm (5' 2 ) 11/08/2024 9:39 AM INSTRUMENTAL MUSIC TEACHER Body Mass Index 19.57 11/08/2024 9:39 AM INSTRUMENTAL MUSIC TEACHER Medical Devices Implanted Type Area Workforce Management Analyst Device Identifier Shelf Expiration Date Model / Serial / Lot Tibial Baseplate Implanted:Qty: 1 on 10/12/2024 by Chucho Joshi MD at [facility] Left: Knee [employer] 03/21/2032 [id number] / / [id number] Articular Insert Implanted:Qty: 1 on 10/12/2024 by Chucho Joshi MD at [facility] Left: Knee [employer] 10/28/2031 [id number] / / [id number] Legion Por Cr Walton Fem L Sz 4 Implanted:Qty: 1 on 10/12/2024 by Chucho Joshi MD at [facility] Left: Knee [employer] 01/04/2032 [id number] / / [id number] Procedures * XR KNEE LEFT 4VW OR [...] 10/12/2024) * BLOOD TYPE VERIFICATION(Performed 10/12/2024) * PA TOTAL KNEE REPLACEMENT(Performed 10/12/2024) Performed for Primary [...] Left 4Vw or More (11/08/2024 9:41 AM INSTRUMENTAL MUSIC TEACHER) Only the most recent of2 resultswithin the time period is included. Anatomical Region Laterality Modality Lower Extremity Radiographic Shu ging 11/08/2024 9:59 AM INSTRUMENTAL MUSIC TEACHER Narrative 11/08/2024 10:00 AM INSTRUMENTAL MUSIC TEACHER PROCEDURE: XR KNEE LEFT 4VW OR MORE [...] RADIOLOGY XRAY RESULTS ORDER (10/17/2024 2:05 AM INSTRUMENTAL MUSIC TEACHER) Anatomical Region Laterality Modality Other Narrative 10/17/2024 2:05 AM INSTRUMENTAL MUSIC TEACHER Ordered by an unspecified provider. Scanned Document IMAGING * CARDIAC RHYTHM STRIP ORDER (10/17/2024 2:04 AM INSTRUMENTAL MUSIC TEACHER) Narrative 10/17/2024 2:04 AM INSTRUMENTAL MUSIC TEACHER Ordered by an unspecified provider. Scanned Document CARDIAC SERVICES ORD ERABLES * APHERESIS/TRANSFUSION ORDER (10/17/2024 2:04 AM INSTRUMENTAL MUSIC TEACHER) Narrative 10/17/2024 2:04 AM INSTRUMENTAL MUSIC TEACHER Ordered by an unspecified provider. Scanned Document NURSING - VITAL SIGN S AND ASSESSMENT * (ABNORMAL) HGB HCT PANEL (10/13/2024 2:33 AM INSTRUMENTAL MUSIC TEACHER) [facility] Signature Hemoglobin 10.6(L) 11.9 - 15.8 g/dL 10/13/2024 3:01 AM INSTRUMENTAL MUSIC TEACHER [facility] Hematocrit 31.6(L) 34.8 - 46.1 % 10/13/2024 3:01 AM INSTRUMENTAL MUSIC TEACHER [facility] Blood BLOOD SPECIMEN / Unknown Lab Venipuncture / Unknown 10/13/2024 2:33 AM INSTRUMENTAL MUSIC TEACHER 10/13/2024 2:56 AM INSTRUMENTAL MUSIC TEACHER Chucho Joshi MD LAB - HEMATOLOGY OR DERABLES [facility] [address] [place] [address] * ETT LINE PERFORMABLE (10/12/2024 11:29 AM INSTRUMENTAL MUSIC TEACHER) Narrative Anupama Alejandre APRN-PLACEMENT COORDINATOR - 10/12/2024 11:29 AM INSTRUMENTAL MUSIC TEACHER Anupama Alejandre APRN-CRNA 10/12/2024 11:29 AM Endotracheal Tube Placement: Patient Location: OR. Intubation Event Date/Time: 10/12/2024 11:11 AM Procedure: intubation (54632) Procedure Section: Sedation: under general anesthesia. Indications [...] * Peripheral Nerve Block (10/12/2024 10:51 AM INSTRUMENTAL MUSIC TEACHER) Narrative Redd Garvin MD - 10/12/2024 10:51 AM INSTRUMENTAL MUSIC TEACHER Redd Garvin MD 10/12/2024 10:53 AM Peripheral [...] * BLOOD TYPE VERIFICATION (10/12/2024 9:47 AM INSTRUMENTAL MUSIC TEACHER) ABO Rh A POS 10/12/2024 10:14 AM INSTRUMENTAL MUSIC TEACHER [facility] Blood Bank BLOOD SPECIMEN / Unknown Venipuncture / Unknown 10/12/2024 9:47 AM INSTRUMENTAL MUSIC TEACHER 10/12/2024 9:54 AM INSTRUMENTAL MUSIC TEACHER Timothy Garcia MD LAB - BLOOD BANK ORD ERABLES [facility] [address] [place] [address] * NICOTINE + METABOLITES URINE (10/02/2024 2:00 PM INSTRUMENTAL MUSIC TEACHER) Nicotine Urine <10.0 ng/mL [facility] INSURANCE BILL Comment: Nicotine levels greater than 100.0 are consistent with the use of tobacco or tobacco cessation products. Cotinine Urine <10.0 ng/mL [facility] INSURANCE BILL Comment: Cotinine levels greater than 200.0 are consistent with the use of tobacco or tobacco cessation products. Urine URINE / Unknown 10/02/2024 2 :00 PM INSTRUMENTAL MUSIC TEACHER 10/02/2024 Narrative [facility] INSURANCE BILL - 10/06/2024 7:12 AM INSTRUMENTAL MUSIC TEACHER Test(s) 121463-Zuwokajo; [id number]-Askgdidf was developed and its performance characteristics determined by [employer]. It has not been cleared or approved by the Food and Drug Administration. Performed at: - [address] [id number] Supervisor Typesetting: Ministerio Nair MD, Phone: [phone] Chucho Joshi MD LAB - URINE TERMINAL OPERATIONS MANAGER RY ORDERABLES Performing Organization Address [facility] Co de Phone Number [facility] [address] [place] [address] * NICOTINE + METABOLITES BLOOD (10/02/2024 2:00 PM INSTRUMENTAL MUSIC TEACHER) Nicotine <1.0 ng/mL [facility] INSURANCE BILL Comment: This test was developed and its performance characteristics determined by [facility]. It has not been cleared or approved by the Food and Drug Administration. Nicotine levels greater than 2.0 are consistent with the use of tobacco or tobacco cessation products. Cotinine <1.0 ng/mL [facility] INSURANCE BILL Comment: This test was developed and its performance characteristics determined by [employer]. It has not been cleared or approved by the Food and Drug Administration. Cotinine levels greater than 20.0 are consistent with the use of tobacco or tobacco cessation products. Blood BLOOD SPECIMEN / Unknown 10/02/2024 2:00 PM INSTRUMENTAL MUSIC TEACHER 10/02/2024 Narrative [facility] INSURANCE BILL - 10/11/2024 10:13 AM INSTRUMENTAL MUSIC TEACHER Performed at: - [address] [id number] Supervisor Typesetting: Minitserio Nair MD, Phone: [phone] Chucho Joshi MD LAB - CHEMISTRY ORD ERABLES [facility] B[facility] [address] [place] [address] * CULTURE MSSA/MRSA (09/21/2024 1:53 PM CDT) Culture Negative for Staphylococcus aureus (MRSA/MSSA) 09/23/2024 9:43 AM CDT [facility] MICROBIOLOGY Microbiology SPECIMEN FROM NASAL FOSSAE / Unknown Collection / Unknown 09/21/2024 1:53 PM CDT 09/21/2024 2:04 PM CDT Chucho Joshi MD LAB - MICROBIOLOGY ORDERABLES [facility] MICROBIOLOGY [address] [place] [address], [facility] [phone] * (ABNORMAL) URINALYSIS REFLEX MICROSCOPIC REFLEX CULTURE (09/21/2024 1:53 PM CDT) Color UA Yellow Straw, Yellow 09/21/2024 2:10 PM CDT [facility] Clarity UA Cloudy(A) Clear 09/21/2024 2:10 PM CDT [facility] Glucose UA Negative Negative 09/21/2024 2:10 PM CDT [facility] Bilirubin UA Negative Negative 09/21/2024 2:10 PM CDT [facility] Ketone UA Negative Negative 09/21/2024 2:10 PM CDT [facility] Specific [place] UA 1.010 1.005 - 1.030 09/21/2024 2:10 PM CDT [facility] Blood UA Negative Negative 09/21/2024 2:10 PM CDT [facility] pH UA 8.0 5.0 - 8.0 pH 09/21/2024 2:10 PM CDT [facility] Protein UA Negative Negative 09/21/2024 2:10 PM CDT [facility] Urobilinogen UA Negative Negative mg/dL 09/21/2024 2:10 PM CDT [facility] Nitrite UA Negative Negative 09/21/2024 2:10 PM CDT [facility] Leukocyte UA Negative Negative 09/21/2024 2:10 PM CDT [facility] Urine Microscopy Urine microscopy not indicated 09/21/2024 2:10 PM CDT [facility] Reflex Status Culture not indicated 09/21/2024 2:10 PM CDT [facility] Urine URINE SPECIMEN OBTAINED BY CLEAN CATCH PROCEDURE / Unknown Collection / Unknown 09/21/2024 1:53 PM CDT 09/21/2024 2:03 PM CDT Narrative [facility] - 09/21/2024 2:10 PM CDT Ascorbic Acid can cause false negative urine strip tests for blood, glucose, nitrite, and bilirubin. Chucho Joshi MD LAB - URINALYSIS OR DERABLES Performing Organization Address [facility] Co de Phone Number [facility] [address] [place] [address] * TRANSFERRIN (09/21/2024 1:53 PM CDT) Pathologist [facility] Transferrin 250 174 - 382 mg/dL 09/21/2024 2:23 PM CDT [facility] Blood BLOOD SPECIMEN / Unknown Venipuncture / Unknown 09/21/2024 1:53 PM CDT 09/21/2024 2:03 PM CDT Chucho Joshi MD LAB - CHEMISTRY ORD ERABLES Performing Organization Address [facility] Co de Phone Number [facility] [address] [place] [address] * (ABNORMAL) COMPREHENSIVE METABOLIC PANEL (09/21/2024 1:53 PM CDT) [facility] Glucose 104(H) 70 - 99 mg/dL 09/21/2024 2:23 PM CDT [facility] Sodium 140 136 - 145 mmol/L 09/21/2024 2:23 PM CDT [facility] Potassium 3.9 3.5 - 5.1 mmol/L 09/21/2024 2:23 PM CDT [facility] Chloride 104 98 - 107 mmol/L 09/21/2024 2:23 PM CDT [facility] CO2 26 22 - 29 mmol/L 09/21/2024 2:23 PM CDT [facility] Calcium 10.1 8.4 - 10.4 mg/dL 09/21/2024 2:23 PM CDT [facility] Anion Gap 10 6 - 16 mmol/L 09/21/2024 2:23 PM CDT [facility] BUN 16 7 - 26 mg/dL 09/21/2024 2:23 PM CDT [facility] Creatinine 0.76 0.57 - 1.11 mg/dL 09/21/2024 2:23 PM CDT [facility] Alkaline Phosphatase 55 40 - 150 U/L 09/21/2024 2:23 PM CDT [facility] ALT 23 0 - 55 U/L 09/21/2024 2:23 PM CDT [facility] AST 22 5 - 34 U/L 09/21/2024 2:23 PM CDT [facility] Protein Total 7.5 6.4 - 8.3 gm/dL 09/21/2024 2:23 PM CDT [facility] Albumin 4.4 3.4 - 5.0 gm/dL 09/21/2024 2:23 PM CDT [facility] Bilirubin Total 0.4 0.2 - 1.2 mg/dL 09/21/2024 2:23 PM CDT [facility] eGFR by CKD-EPI 87(L) >=90 mL/min/1.7 3 m2 09/21/2024 2:23 PM CDT [facility] Blood BLOOD SPECIMEN / Unknown Venipuncture / Unknown 09/21/2024 1:53 PM CDT 09/21/2024 2:03 PM CDT Chucho Joshi MD LAB - CHEMISTRY ORD ERABLES [facility] [address] [place] [address] * HEMOGLOBIN A1C (09/21/2024 1:52 PM CDT) Pathologist [facility] Hemoglobin A1c 5.2 <5.7 % 09/21/2024 2:58 PM CDT [facility] Estimated Average Glucose 103 mg/dL 09/21/2024 2:58 PM CDT [facility] Blood BLOOD SPECIMEN / Unknown Venipuncture / Unknown 09/21/2024 1:52 PM CDT 09/21/2024 2:03 PM CDT Narrative [facility] - 09/21/2024 2:58 PM CDT HbA1c [...] Chucho Joshi MD LAB - CHEMISTRY ORD [employer] Performing Organization Address [facility] Co de Phone Number [facility] [address] [place] [address] * FRUCTOSAMINE (09/21/2024 1:52 PM CDT) [facility] Fructosamine 268 205 - 285 umol/L 09/24/2024 12:02 AM CDT [facility] ([facility]) Comment: INTERPRETIVE INFORMATION: Fructosamine Variations in levels of serum proteins (albumin and immunoglobulins) may affect fructosamine results. Performed By: [employer] [address] [place] [address] Barrel Maker: Henry Barrow MD, PhD CLIA Number: [id number] Blood BLOOD SPECIMEN / Unknown Venipuncture / Unknown 09/21/2024 1:52 PM CDT 09/21/2024 2:03 PM CDT Chucho Joshi MD LAB - CHEMISTRY ORD ERABLES Performing Organization Address [facility]/ZIP Co de Phone Number [employer] [facility]) [address] [place] [address] * TYPE + SCREEN PANEL (09/21/2024 1:52 PM CDT) [facility] ABO Rh A POS 09/21/2024 3:05 PM CDT [facility] Comment:No history; collect retype. Antibody Screen NEG 3:05 PM CDT [facility] Blood Bank BLOOD SPECIMEN / Unknown Venipuncture / Unknown 09/21/2024 1:52 PM CDT 09/21/2024 2:03 PM CDT Chucho Joshi MD LAB - BLOOD BANK OR DERABLES [facility] [address] [phone] * CBC W AUTO DIFFERENTIAL (09/21/2024 1:52 PM CDT) Pathologist [facility] WBC 5.3 4.0 - 10.7 x10E9/L 09/21/2024 2:36 PM CDT [facility] RBC Count 4.48 3.90 - 5.20 x10E12/L 09/21/2024 2:36 PM CDT [facility] Hemoglobin 13.3 11.9 - 15.8 g/dL 09/21/2024 2:36 PM CDT [facility] Hematocrit 40.4 34.8 - 46.1 % 09/21/2024 2:36 PM CDT [facility] MCV 90.2 80.0 - 98.0 fL 09/21/2024 2:36 PM CDT [facility] MCH 29.7 26.7 - 33.6 pg 09/21/2024 2:36 PM CDT [facility] MCHC 32.9 31.7 - 36.3 g/dL 09/21/2024 2:36 PM CDT [facility] RDW-CV 12.5 11.3 - 14.8 % 09/21/2024 2:36 PM CDT [facility] Platelet Count 270 150 - 420 x10E9/L 09/21/2024 2:36 PM CDT [facility] MPV 9.3 7.8 - 11.4 fL 09/21/2024 2:36 PM CDT [facility] Neutrophil % 45.5 41.0 - 74.0 % 09/21/2024 2:36 PM CDT [facility] Lymphocyte % 45.7 17.0 - 47.0 % 09/21/2024 2:36 PM CDT [facility] Monocyte % 7.6 3.0 - 11.0 % 09/21/2024 2:36 PM CDT [facility] Eosinophil % 0.4 0.0 - 7.0 % 09/21/2024 2:36 PM CDT [facility] Basophil % 0.4 0.0 - 1.6 % 09/21/2024 2:36 PM CDT [facility] Immature Granulocytes % 0.4 0.0 - 1.0 % 09/21/2024 2:36 PM CDT [facility] Neutrophil Absolute 2.39 1.60 - 7.50 x10E9/L 09/21/2024 2:36 PM CDT [facility] Lymphocyte Absolute 2.40 1.00 - 4.40 x10E9/L 09/21/2024 2:36 PM CDT [facility] Monocyte Absolute 0.40 0.15 - 1.00 x10E9/L 09/21/2024 2:36 PM CDT [facility] Eosinophil Absolute 0.02 0.00 - 0.60 x10E9/L 09/21/2024 2:36 PM CDT [facility] Basophil Absolute 0.02 0.00 - 0.13 x10E9/L 09/21/2024 2:36 PM CDT [facility] Blood BLOOD SPECIMEN / Unknown Venipuncture / Unknown 09/21/2024 1:52 PM CDT 09/21/2024 2:03 PM CDT Chucho Joshi MD LAB - HEMATOLOGY OR DERABLES [facility] [address] [place], [place] [id number] * XR KNEE BILAT STANDING 1VW (05/17/2024 [...] If there are any questions, please call [phone]. OVERALL ASSESSMENT: BI-RADS CATEGORY 2: BENIGN. > Interpreting Provider: Roseline Ayala DO on 09/20/2023 2:08 PM Narrative 09/20/2023 2:08 PM CDT EXAMINATION: DIGITAL MAMMO BILAT IMPLANT SCREEN W BRAYDON AND WITH CAD LOCATION: [facility] EXAM DATE: 09/07/2023 HISTORY: New [...] screening mammography. For further information, please call [phone]. COMPARISON: No prior mammograms are available for [...] Report dictated by Gerardo Cook MD, MD (radiology physician assistant). I, Christian Ferrara MD have personally reviewed and interpreted this examination/study. 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 Christian Branham MD have personally reviewed and [...] Report dictated by Gerardo Cook MD, MD (radiology physician assistant). Christian Branham MD have personally reviewed and [...] Report dictated by Gerardo Cook MD, MD (radiology physician assistant). Christian Branham MD have personally reviewed and [...] fibula. Report dictated by Lexa Greer MD (radiology physician assistant). Christian Branham MD have personally reviewed and interpreted this examination/study. 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 varus deformity evaluation Technologist Note: Additional: COMPARISON: None. FINDINGS: There are chronic healed distal tibial and fibular fractures with mild residual deformity including angulation. There is no acute fracture. IMPRESSION: Chronic fractures of the tibia and fibula. Report dictated by Lexa Greer MD (radiology physician assistant). I, Christian Ferrara MD have personally reviewed and interpreted this examination/study. > Interpreting Provider: Christian Ferrara MD on 08/11/2023 3:36 PM Xenia Steele PA-C DIAGNOSTIC IMAGING ORDERABLES * XR BONE LENGTH SCANOGRAM (08/11/2023 1:46 PM CDT) Anatomical Region Laterality Modality Lower Extremity, Pelvis Radiogra [facility] 08/11/2023 1:48 PM CDT Impressions 08/11/2023 [...] PM Mani Pelaez MD DIAGNOSTIC IMAGING [facility] Care Teams Lpn Or Medical Assistant Relationship Specialty Start Date End Date Beth Pereyra MD [address] [facility] [address] [place] [address] PCP - General Internal Medicine 07/07/23
--- OUTSIDE RECORDS SUMMARY | 2025-02-05 16:48 | XMS_ITS | Encounter Summary ---
Author Organization [facility] Address [address] [place] [address] Care Team Providers Care Nursing Education Specialist Name Role Phone Beth Pereyra MD Primary Care Provider [phone] Paul Ariza MD Unavailable [phone] Chucho Joshi MD Unavailable [phone] Encounter Details Date Type Department Care Team (Late Contact Info) Description 12/05/2023 [facility] [address] Beth Pereyra MD [address] [place] [address] Happy New Year! Social History Tobacco [...] Description 09/05/2025 2:00 PM CDT Office Visit [facility] Multispecialty [address] [place] [address] Beth Pereyra MD [address] [address] 09/05/2025 3:00 PM CDT Office Visit [facility] Multispecialty Care - [place] [address] [address] [place] [address] Beth Pereyra MD [facility] [address] documented as of this encounter Visit Diagnoses Not on filedocumented in this encounter Care Teams Nursing Education Specialist Relationship Specialty Start Date End Date Beth Pereyra MD [address] [place] [address] PCP - General INTERNAL MEDICINE 05/04/23 Paul Ariza MD [address] [place] [address] ORTHOPAEDIC SURGERY 08/23/24 08/23/24 Chucho Joshi MD [address] [place] [address] ORTHOPAEDIC SURGERY 08/23/24 documented as of this encounter
--- OUTSIDE RECORDS SUMMARY | 2025-02-05 16:48 | XMS_ITS | Encounter Summary ---
Author Organization [facility] - [facility] Address [address] [place] [address] Care Team Providers Care Metal Casting Trades Worker Name Role Phone Beth Pereyra MD Primary Care Provider [phone] Paul Ariza MD Unavailable [phone] Chucho Joshi MD Unavailable [phone] Encounter Details Date Type Department Care Team (Latest Contact Info) Description 08/23/2024 [facility] Message Enc [facility] Medical Group Multispecialty Care - [place] [address] [address] [place] [address] [place] [address] [place] [address] [address] [place] [address] Last eCheck questionnaire Social History Tobacco Use Types Packs/Day Years Used Date Smoking Tobacco: Never Passive Smoke Exposure: Past Smokeless Tobacco: Never Comments:Counseled by DR Suasnnah conteh. Alcohol Use Standard Drinks/Week Comments Yes [...] Description 09/05/2025 2:00 PM CDT Office Visit [facility] Medical [facility] Multispecialty Care - [address] [address] Beth Pereyra MD [address] [place] [address] 09/05/2025 3:00 PM CDT [facility] [address] [address] Beth Pereyra MD [address] [place] [address] documented as of this encounter Visit Diagnoses Not on filedocumented in this encounter Additional Health Concerns Assessment Noted Time PHQ-9 Depression Total Score: 1 08/18/20 10:42 AM CDT documented as of this encounter Care Teams Metal Casting Trades Worker Relationship Specialty Start Date End Date Beth Pereyra MD [address] [place] [address] PCP - General INTERNAL MEDICINE 05/04/23 Paul Ariza MD [address] [place] [address] ORTHOPAEDIC SURGERY 08/23/24 08/23/24 Chucho Joshi MD [address] [place] [address] ORTHOPAEDIC SURGERY 08/23/24 documented as of this encounter
--- OUTSIDE RECORDS SUMMARY | 2025-02-05 16:48 | XMS_ITS | Encounter Summary ---
Author Organization [facility] Address [facility] [place] [address] Care Team Providers Care Product Development Intern Name Role Phone Beth Pereyra MD Primary Care Provider [phone] Paul Ariza MD Unavailable [phone] Chucho Joshi MD Unavailable [phone] Encounter Details Date Type Department Care Team (Late Contact Info) Description 10/19/2023 [facility] [address] Beth Pereyra MD [address] [place] [address] Colonoscopy Social History Tobacco Use Types [...] Description 09/05/2025 2:00 PM CDT Office Visit [facility] Multispecialty [address] [place] [address] Beth Pereyra MD [address] [address] 09/05/2025 3:00 PM CDT Office Visit [facility] Medical [facility] Multispecialty Care - [place] [address] [address] [address] [place] [address] Beth Pereyra MD [address] [address] documented as of this encounter Visit Diagnoses Not on filedocumented in this encounter Care Teams Product Development Intern Relationship Specialty Start Date End Date Beth Pereyra MD [address] [place] [address] PCP - General INTERNAL MEDICINE 05/04/23 Paul Ariza MD [address] [place] [address] ORTHOPAEDIC SURGERY 08/23/24 08/23/24 Chucho Joshi MD [address] [place] [address] ORTHOPAEDIC SURGERY 08/23/24 documented as of this encounter
--- OUTSIDE RECORDS SUMMARY | 2025-02-05 16:48 | XMS_ITS | Encounter Summary ---
Author Organization [facility] Address [address] [place] [address] Care Team Providers Care Pipe Fitter Apprentice Name Role Phone Beth Pereyra MD Primary Care Provider [phone] Paul Ariza MD Unavailable [phone] Chucho Joshi MD Unavailable [phone] Encounter Details Date Type Department Care Team (Latest Contact Info) Description 09/01/2023 [facility] [address] Beth Pereyra MD [address] [place] [address] Breast Cancer Screening Social History Tobacco [...] Description 09/05/2025 2:00 PM CDT Office Visit [facility] [address] [place] [address] Beth Pereyra MD [address] [address] 09/05/2025 3:00 PM CDT Office Visit [facility] Multispecialty Care [place] [address] [address] [place] [address] Beth Pereyra MD [facility] [address] documented as of this encounter Visit Diagnoses Not on filedocumented in this encounter Care Teams Pipe Fitter Apprentice Relationship Specialty Start Date End Date Beth Pereyra MD [address] [place] [address] PCP - General INTERNAL MEDICINE 05/04/23 Paul Ariza MD 1 [place] [address] ORTHOPAEDIC SURGERY 08/23/24 08/23/24 Chucho Joshi MD 1225 [place] [address] ORTHOPAEDIC SURGERY 08/23/24 documented as of this encounter
--- OUTSIDE RECORDS SUMMARY | 2025-02-05 16:48 | XMS_ITS | Referral Summary ---
Author Organization [facility] Address [address] [place] [address] Care Team Providers Care Promotions Team Leader Name Role Phone Beth Pereyra MD Primary Care Provider [phone] Source Comments [facility],non-owned Affiliates and Associated Physician Practices is amultiple site organization consisting of ambulatory clinics and hospital sitesin [place], [place], [place] and [place]. This disclosure is being madepursuant to the Care Everywhere program and may not contain all information available regarding this patient. Last updated 18.[facility] Encounters Date Type Department Care Team Description 11/30/2024 Telephone [facility] - Orth[facility] Surgery [address] [place] [phone] Chucho Joshi MD Follow-up 11/15/2024 Telephone [facility] [address] [place] [phone] Chucho Joshi MD Question 11/08/2024 Travel 11/08/2024 9:36 AM ADMITTING SUPERVISOR - 11/08/2024 11:59 PM ADMITTING SUPERVISOR Hospital Encounter [facility] [address] [place] [address], [address] [place] [phone] Chucho Joshi MD Discharge Disposition: Home or Self Care 11/08/2024 9:45 AM ADMITTING SUPERVISOR Office Visit [facility] [address] [place] [phone] Chucho Joshi MD Status post total left knee replacement (Primary Dx) from Last 3 Months Allergies No known [...] Next Due COVID PFIZER BIVALENT 12Y+ 30mcg/0.3ML 2 Covid Pfizer primary Monovalent 12+ yr 0.3ml [...] Comments Blood Pressure 120/64 10/13/2024 7:39 AM ADMITTING SUPERVISOR Pulse 69 10/13/2024 7:39 AM ADMITTING SUPERVISOR Temperature 36.9 C (98.5 F) 10/13/2024 7:39 AM ADMITTING SUPERVISOR Respiratory Rate 16 10/13/2024 7:39 AM ADMITTING SUPERVISOR Oxygen Saturation 99% 10/13/2024 7:39 AM ADMITTING SUPERVISOR Inhaled Oxygen Concentration - - Weight 48.5 kg (107 lb) 11/08/2024 9:39 AM ADMITTING SUPERVISOR Height 157.5 cm (5' 2 ) 11/08/2024 9:39 AM ADMITTING SUPERVISOR Body Mass Index 19.57 11/08/2024 9:39 AM ADMITTING SUPERVISOR Functional Status Functional Status Response Date of [...] Description 03/14/2025 10:00 AM CDT Office Visit [facility] - Orthopedic Surgery [address] [place] [address] Chucho Joshi MD [address] [address] Medical Devices Implanted Type Area Molasses And Caramel Operator Device Identifier Shelf Expiration Date Model / Serial / Lot Tibial Baseplate Implanted:Qty: 1 on 10/12/2024 by Chucho Joshi MD at [facility] Left: Knee [employer] 03/21/2032 [id number] / / [id number] Articular Insert Implanted:Qty: 1 on 10/12/2024 by Chucho Joshi MD at [facility] Left: Knee [employer] 10/28/2031 [id number] / / [id number] Legion Por Cr Walton Fem L Sz 4 Implanted:Qty: 1 on 10/12/2024 by Chucho Joshi MD at [facility] Left: Knee [employer] 01/04/2032 [id number] / / [id number] Procedures Procedure Name Priority Date/Time Associated Diagnosis Comments XR KNEE LEFT 4VW OR MORE Routine 11/08/2024 9:41 AM ADMITTING SUPERVISOR Status post total left knee replacement MAMMO BILAT IMPLANT SCREEN W BRAYDON Routine 09/07/2023 3:45 PM CDT Encounter for screening mammogram for malignant neoplasm of breast from Last 3 Months or Most Recently Relevant to Health Maintenance Results * XR Knee Left 4Vw or More (11/08/2024 9:41 AM ADMITTING SUPERVISOR) Anatomical Region Laterality Modality Lower Extremity Radiographic Shu ging 11/08/2024 9:59 AM ADMITTING SUPERVISOR Narrative 11/08/2024 10:00 AM ADMITTING SUPERVISOR PROCEDURE: XR KNEE LEFT 4VW OR MORE [...] If there are any questions, please call [phone]. OVERALL ASSESSMENT: BI-RADS CATEGORY 2: BENIGN. > Interpreting Provider: Roseline Ayala DO on 09/20/2023 2:08 PM Narrative 09/20/2023 2:08 PM CDT EXAMINATION: DIGITAL MAMMO BILAT IMPLANT SCREEN W BRAYDON AND WITH CAD LOCATION: [facility] EXAM DATE: 09/07/2023 HISTORY: New baseline [...] screening mammography. For further information, please call [phone]. COMPARISON: No prior mammograms are available for [...] 12:50 PM 10/13/2024 2:25 PM Care Teams Promotions Team Leader Relationship Specialty Start Date End Date Beth Pereyra MD [facility] [address] [id number] PCP - General Internal Medicine 07/07/23
--- OUTSIDE RECORDS SUMMARY | 2025-02-05 16:48 | XMS_ITS | Encounter Summary ---
Author Organization [facility] Address [address] [place] [address] Care Team Providers Care Wagon Driver Name Role Phone Beth Pereyra MD Primary Care Provider Paul Ariza MD Unavailable [phone] Chucho Joshi MD Unavailable [phone] Encounter Details Date Type Department Care Team (Late Contact Info) Description 07/11/2024 MyChart Message Enc [address] [place] [address] [place] [address] [place] [address] Thank You Social History Tobacco Use [...] Visit [facility] Care - [place] [address] [address] [place] [address] Beth Pereyra MD [facility] [address] [address] 09/05/2025 3:00 PM CDT Office Visit [facility]ty Care - [place] [address] [address] [place] [address] Beth Pereyra MD [address] [address] documented as of this encounter Visit Diagnoses Not on filedocumented in this encounter Care Teams Wagon Driver Relationship Specialty Start Date End Date Beth Pereyra MD [address] [place] [address] PCP - General INTERNAL MEDICINE 05/04/23 Paul Ariza MD 1 [place] [address] ORTHOPAEDIC SURGERY 08/23/24 08/23/24 Chucho Joshi MD 1225 [place] [address] ORTHOPAEDIC SURGERY 08/23/24 documented as of this encounter
--- OUTSIDE RECORDS SUMMARY | 2025-02-05 16:48 | XMS_ITS | Encounter Summary ---
Author Organization [facility] Address [address] [place] [address] Care Team Providers Care Hat Sizer Name Role Phone Beth Pereyra MD Primary Care Provider [phone] Paul Ariza MD Unavailable [phone] Chucho Joshi MD Unavailable [phone] Encounter Details Date Type Department Care Team (Late Contact Info) Description 07/11/2024 Avocado™ Message Enc [place] [address] [address] [place] [address] Luis Miguel [facility] Provider EKG results Social History Tobacco Use [...] Description 09/05/2025 2:00 PM CDT [facility] [address] [place] [address] Beth Pereyra MD [address] [address] 09/05/2025 3:00 PM CDT Office Visit [facility] Multispecialty Care - [place] [address] [address] [place] [address] Beth Pereyra MD [facility] [address] [address] documented as of this encounter Visit Diagnoses Not on filedocumented in this encounter Care Teams Hat Sizer Relationship Specialty Start Date End Date Beth Pereyra MD [address] [place] [address] PCP - General INTERNAL MEDICINE 05/04/23 Paul Ariza MD 1 [place] [address] ORTHOPAEDIC SURGERY 08/23/24 08/23/24 Chucho Joshi MD 1225 [place] [address] ORTHOPAEDIC SURGERY 08/23/24 documented as of this encounter
--- OUTSIDE RECORDS SUMMARY | 2025-02-05 16:48 | XMS_ITS | Continuity of Care Document ---
Author Name Auto Generated, Auto Generated Organization [facility] Support Name Relationship Address Phone Corey Jack Spouse Unknown Unavailable Summary Purpose Consult/Referral Allergies, Adverse Reactions, Alerts Type Description/Agent Code Date Allergy Active Date Allergy Inactivated Date of Last Reaction Adverse Reactions Severity Status Comments Source of Information [employer] f[employer] No Known Allergies Active Patient History Medications Medications Prescription Date Begun Date Discontinued Status Associated Diagnoses Ordering Provider Aspir-Low 81 mg tablet,delayed release 1 TAB 2 Times Daily for 30 Days 10/15/20 Active MD Chucho Joshi celecoxib 100 mg capsule 1 CAP 2 Times Daily for 30 Days 10/15/20 Active MD Chucho Joshi docusate sodium 100 mg capsule 1 CAP 2 Times Daily for 15 Days 10/15/20 Active MD Chucho Joshi famotidine 20 mg tablet 1 TAB 2 Times Daily for 30 Days 10/15/20 Active MD Chucho Joshi [place] 5 mg-325 mg tablet 1 TAB PRN Every 4 Hours 10/15/20 Active MD Chucho Joshi Miralax 17 gram oral powder packet 17 GRAM PRN Every 1 Day 10/15/20 Active MD Chucho Joshi pregabalin 50 mg capsule 1 CAP 2 Times Daily for 30 Days 10/15/20 Active MD Chucho Joshi Conditions/Problems Problem/Diagnosis Awareness of Diagnosis Code (ICD-10) Onset Date (Start Date) Resolution Date (End Date) Status Source Comments AFTERCARE FOLLOWING JOINT REPLACEMENT SURGERY Z47.1 10/15/20 24 MD Chucho Garcia ENCOUNTER FOR REMOVAL OF SUTURES Z48.02 10/15/20 24 MD Chucho Garcia CODING TEAM LEAD (CURRENT) USE OF ASPIRIN Z79.82 10/15/20 24 Active MD Chucho Joshi PRESENCE OF LEFT ARTIFICIAL KNEE JOINT Z96.652 10/15/20 24 Active MD Chucho Joshi Procedures No Known Procedures
--- OUTSIDE RECORDS SUMMARY | 2025-02-05 16:48 | XMS_ITS | Encounter Summary ---
Author Organization [facility] Address [address] [place] [address] Care Team Providers Care Associate Professor Of Pathology Name Role Phone Beth Pereyra MD Primary Care Provider [phone] Paul Ariza MD Unavailable [phone] Chucho Joshi MD Unavailable [phone] Encounter Details Date Type Department Care Team (Late Contact Info) Description 07/11/2024 Itaconix Message [facility] [address] [place] [address] Luis Miguel [facility] Provider lab results Social History Tobacco [...] 2:00 PM CDT [facility] [address] [facility] [address] [place] [address] Beth Pereyra MD [address] [address] 09/05/2025 3:00 PM CDT Office Visit [facility] Multispecialty Care - [place] [address] [place] [address] [address] [place] [address] Beth Pereyra MD [facility]8 [address] [address] documented as of this encounter Visit Diagnoses Not on filedocumented in this encounter Care Teams Associate Professor Of Pathology Relationship Specialty Start Date End Date Beth Pereyra MD [address] [place] [address] PCP - General INTERNAL MEDICINE 05/04/23 Paul Ariza MD 1 [place] [address] ORTHOPAEDIC SURGERY 08/23/24 08/23/24 [place] [address] [place] [address] ORTHOPAEDIC SURGERY 08/23/24 documented as of this encounter
--- OUTSIDE RECORDS SUMMARY | 2025-02-05 16:48 | XMS_ITS | Encounter Summary ---
Author Organization [facility] Address [facility] [place] [address] Care Team Providers Care Master Coastal Waters Name Role Phone Beth Pereyra MD Primary Care Provider [phone] Pual Ariza MD Unavailable [phone] Chucho Joshi MD Unavailable [phone] Encounter Details Date Type Department Care Team (Late Contact Info) Description 01/10/2024 [facility] [address] Beth Pereyra MD [address] [place] [address] Records Social History Tobacco Use Types [...] 2:00 PM CDT Office Visit [facility]pec[facility]ty [address] [place] [address] Beth Pereyra MD [address] [address] 09/05/2025 3:00 PM CDT Office Visit [facility] Multispecialty Care - [place] [address] [place] [address] [address] [place] [address] Beth Pereyra MD [address] [address] documented as of this encounter Visit Diagnoses Not on filedocumented in this encounter Care Teams Master Coastal Waters Relationship Specialty Start Date End Date Beth Pereyra MD [address] [place] [address] PCP - General INTERNAL MEDICINE 05/04/23 Paul Ariza MD 1 [place] [address] ORTHOPAEDIC SURGERY 08/23/24 08/23/24 Cuhcho Joshi MD 1225 [place] [address] ORTHOPAEDIC SURGERY 08/23/24 documented as of this encounter
--- OUTSIDE RECORDS SUMMARY | 2025-02-05 16:48 | XMS_ITS | Encounter Summary ---
Author Organization [facility] Address [address] [place] [address] Care Team Providers Care Milieu Technician Name Role Phone Beth Pereyra MD Primary Care Provider Paul Ariza MD Unavailable Chucho Joshi MD Unavailable [phone] Encounter Details Date Type Department Care Team (Late Contact Info) Description 07/17/2024 MyChart Message Enc [place] [address] [address] [place] [address] [place] [address] [place] [address] Vaccine Social History Tobacco Use Types [...] Visit [facility] - [place] [address] [address] [place] [address] Beth Pereyra MD [facility]8 [address] [address] 09/05/2025 3:00 PM CDT Office Visit [facility] Multispecialty Care [place] [address] [address] [place] [address] Beth Pereyra MD [address] [address] documented as of this encounter Visit Diagnoses Not on filedocumented in this encounter Care Teams Milieu Technician Relationship Specialty Start Date End Date Beth Pereyra MD [address] [place] [address] PCP - General INTERNAL MEDICINE 05/04/23 Paul Ariza MD 1 [place] [address] ORTHOPAEDIC SURGERY 08/23/24 08/23/24 Chucho Joshi MD [address]25 [place] [address] ORTHOPAEDIC SURGERY 08/23/24 documented as of this encounter
== END 2025-02-05 14:24 | disposition home or self-care (01) ==
LOC: ANHIMG 14:26
PROVIDERS: PCP Internal Medicine; Visit Provider Internal Medicine
DX: M85.852 Other specified disorders of bone density and structure, left thigh (principal); M85.851 Other specified disorders of bone density and structure, right thigh; Z78.0 Asymptomatic menopausal state
CPT/HCPCS: 77080